=== PATIENT | male | born 1960 | race Caucasian/White ===

== ENCOUNTER 2020-10-02 07:33 | Inpatient (IN) | payer MEDICAID ==
[2020-10-02] MEDS ORDERED: Thiamine 100 MG in Sodium Chloride 0.9% 100 ML IV STA (08:22)
[2020-10-02] MEDS ORDERED: Multivitamin Tab PO STA (08:22)
[2020-10-02] MEDS ORDERED: Dextrose 5%-0.9% NaCl 1,000 ML IV SCH (08:30)
[2020-10-02] MEDS ORDERED: Diazepam 5 MG Tab PO ONE (09:15)
--- NOTE | 2020-10-02 10:57 | EDM.PDOC ---
ED HPI GENERAL MEDICAL PROBLEM - General Chief Complaint: General Stated Complaint: WEAKNESS Time Seen by Provider: 10/02/20 07:35 Source of Information: Reports: Patient History Limitations: Reports: No Limitations - History of Present Illness INITIAL COMMENTS - FREE TEXT/NARRATIVE: Patient presented to the ED because of weakness for months which got worse for the past week. He also c/o peripheral numbness especially on both legs. There is no associated abdominal pain/nausea or vomiting. There is no fever, chills, he c/o cough whic is mostly non-productive. He has a history of alcoholism and drinks half a gallon of vodka a day. - Related Data Allergies Allergy/AdvReac Type Severity Reaction Status Date / Time No Known Allergies Allergy Verified 10/02/20 08:14 Home Meds: Home Meds Metoprolol Tartrate 100 mg PO BID 03/02/16 [History] Sertraline HCl 150 mg PO DAILY 03/02/16 [History] amLODIPine Besylate [Amlodipine Besylate] 5 mg PO DAILY 03/02/16 [History] Levothyroxine [Synthroid] 75 mcg PO ACBREAKFAST 03/10/16 [History] Levothyroxine 200 mcg PO ACBREAKFAST 05/28/16 [History] Lisinopril/Hydrochlorothiazide [Lisinopril-Hctz 20-25 mg Tab] 20 - 25 tab DAILY 05/28/16 [History] Ferrous Sulfate [Iron] 324 mg PO BID 10/02/20 [History] atorvaSTATin [Lipitor] 20 mg PO DAILY 10/02/20 [History] Past Medical History Cardiovascular History: Reports: High Cholesterol, Hypertension Musculoskeletal History: Reports: Back Pain, Chronic Psychiatric History: Reports: Addiction, Anxiety, Depression, PTSD Other Psychiatric History: ETOH-Treatment 4x in 3 years. Endocrine/Metabolic History: Reports: Hypothyroidism Hematologic History: Reports: B12 Deficiency Other Dermatologic History: severe Flaky skin - Infectious Disease History Infectious Disease History: Reports: Chicken Pox - Past Surgical History Other GI Surgeries/Procedures: GASTRIC BYPASS Other Musculoskeletal Surgeries/Procedures:: SHOULDER SURGERY Social & Family History - Family History Family Medical History: No Pertinent Family History - Tobacco Use Packs/Tins Daily: 1 - Caffeine Use Caffeine Use: Reports: Soda - Alcohol Use Date of Last Drink: 10/01/20 - Recreational Drug Use Recreational Drug Use: No ED ROS GENERAL - Review of Systems Review Of Systems: See Below Constitutional: Reports: No Symptoms HEENT: Reports: No Symptoms Respiratory: Reports: Cough Cardiovascular: Reports: No Symptoms Endocrine: Reports: No Symptoms GI/Abdominal: Reports: No Symptoms : Reports: No Symptoms Musculoskeletal: Reports: No Symptoms Skin: Reports: No Symptoms Neurological: Reports: No Symptoms Psychiatric: Reports: No Symptoms Hematologic/Lymphatic: Reports: No Symptoms ED EXAM, GENERAL - Physical Exam Exam: See Below Exam Limited By: No Limitations General Appearance: Alert, No Apparent Distress Eye Exam: Bilateral Eye: PERRL Ears: Normal External Exam, Normal Canal, Hearing Grossly Normal Nose: Normal Inspection, Normal Mucosa, No Blood Throat/Mouth: Normal Inspection, Normal Lips Head: Atraumatic, Normocephalic Neck: Normal Inspection, Supple, Non-Tender, Full Range of Motion Respiratory/Chest: No Respiratory Distress, Lungs Clear, Normal Breath Sounds, No Accessory Muscle Use, Chest Non-Tender Cardiovascular: Normal Peripheral Pulses, Regular Rate, Rhythm, No Edema, No Gallop, No JVD, No Murmur GI/Abdominal: Normal Bowel Sounds, Soft, Non-Tender, No Organomegaly, No Distention, No Abnormal Bruit, No Mass Back Exam: Normal Inspection, Full Range of Motion Extremities: Normal Inspection, Normal Range of Motion, Non-Tender, No Pedal Edema, Normal Capillary Refill #1 Interpretation EKG Date: 10/02/20 Time: 10:20 Rhythm: NSR Rate (Beats/Min): 91 [place]: Normal P-Wave: Present QRS: Normal ST-T: Normal QT: Normal Comparison: NA - No Prior EKG (NSR RBB) Course - Vital Signs Text/Narrative:: Lab/EKG/CXR result was discussed with patient D5.9NS 1 L bolus Thiamine 100 mg IV x1 MVI 1 PO x1 Valium 10 mg PO x1 case discussed with Dr Dennison Last Recorded V/S: Last Vital Signs Temp 36.6 C 10/02/20 07:33 Pulse 98 10/02/20 07:33 Resp 18 10/02/20 07:33 BP 143/77 H 10/02/20 07:33 Pulse Ox 100 10/02/20 07:33 - Orders/Labs/Meds Orders: Active Orders 24 hr Category Date Time Status EKG Documentation Completion [RC] ASDIRECTED Care 10/02/20 08:21 Active Chest 1V Frontal [CR] Stat Exams 10/02/20 08:34 Taken Dextrose 5%-0.9% NaCl [Dextrose 5%-Normal Saline] 1,000 Med 10/02/20 08:30 Active ml IV ASDIRECTED Sodium Chloride 0.9% [Saline Flush] Med 10/02/20 08:20 Active 10 ml FLUSH ASDIRECTED PRN Saline Lock Insert [OM.PC] Routine Oth 10/02/20 08:20 Ordered EKG 12 Lead [EK] Routine Ther 10/02/20 08:20 Ordered Medication Orders Acetaminophen (Acetaminophen 325 Mg Tab) 650 mg PO Q4H PRN PRN Reason: Pain (Mild 1-3)/fever Dextrose/Sodium Chloride (Dextrose 5%-Normal Saline) 1,000 mls @ 999 mls/hr IV ASDIRECTED ROGER Last Admin: 10/02/20 08:38 Dose: 999 mls/hr Documented by: MARCELIMAViki Lorazepam (Lorazepam 1 Mg Tab) 0 mg PO ASDIRECTED ROGER; Protocol Lorazepam (Lorazepam 2 Mg/Ml Sdv) 0 mg IVPUSH ASDIRECTED PRN; Protocol PRN Reason: ALCOHOL WITHDRAWL Multivitamins/Minerals/Vitamin C (Multivitamin, Childrens Tab.Chew) 1 tab PO DAILY ROEGR Ondansetron HCl (Ondansetron 4 Mg/2 Ml Sdv) 4 mg IV Q4H PRN PRN Reason: Nausea/Vomiting Senna/Docusate Sodium (Docusate Sodium/Sennosides 50-8.6 Mg Tab) 1 tab PO BID PRN PRN Reason: Constipation Sodium Chloride (Sodium Chloride 0.9% 10 Ml Syringe) 10 ml FLUSH ASDIRECTED PRN PRN Reason: Keep Vein Open Labs: Laboratory Tests 10/02/20 10/02/20 10/02/20 Range/Units 08:44 08:44 08:44 WBC 4.5 (3.2-10.1) x10-3/uL RBC 4.23 (3.90-5.90) x10(6)uL Hgb 12.5 L (12.9-17.7) g/dL Hct 38.6 (38.3-50.1) % MCV 91.2 (80.8-98.7) fL MCH 29.6 (27.0-33.3) pg MCHC 32.4 (28.7-35.3) g/dL RDW 24.7 H (12.4-15.0) % Plt Count 66 L (117-477) x10(3)uL MPV 8.1 (6.7-11.0) fL Neut % (Auto) 78.5 H (40.3-71.8) % Lymph % (Auto) 15.1 L (15.8-45.3) % [place] % (Auto) 5.2 L (5.5-15.2) % Eos % (Auto) 0.7 (0.1-6.8) % Baso % (Auto) 0.5 (0.3-3.8) % Neut # (Auto) 3.6 (1.7-6.9) x10-3/uL Lymph # (Auto) 0.7 (0.5-4.5) x10-3/uL [place] # (Auto) 0.2 (0.0-1.2) x10-3/uL Eos # (Auto) 0.0 (0.0-0.6) x10-3/uL Baso # (Auto) 0.0 (0.0-0.3) x10-3/uL Sodium 137 (135-145) mmol/L Potassium 5.1 (3.5-5.3) mmol/L Chloride 94 L (100-110) mmol/L Carbon Dioxide 17 L (21-32) mmol/L BUN 39 H (7-18) mg/dL Creatinine 1.5 H (0.70-1.30) mg/dL Est Cr Clr Drug Dosing 57.48 mL/min Estimated GFR (MDRD) 48 L (>60) BUN/Creatinine Ratio 26.0 H (9-20) Glucose 80 (80-116) mg/dL Calcium 8.2 L (8.6-10.2) mg/dL Magnesium (1.8-2.5) mg/dL Total Bilirubin 1.3 (0.1-1.3) mg/dL AST 277 H* (5-25) IU/L ALT 98 H (12-36) U/L Alkaline Phosphatase 127 H (56-112) IU/L Troponin I 25.3 (4.0-60.3) pg/mL Total Protein 7.7 (6.0-8.0) g/dL Albumin 3.6 (3.2-4.6) g/dL Globulin 4.1 g/dL Albumin/Globulin Ratio 0.9 Amylase (25-115) U/L Lipase (73-393) U/L Ethyl Alcohol (<0.03) % 10/02/20 10/02/20 10/02/20 Range/Units 08:44 08:44 08:44 WBC (3.2-10.1) x10-3/uL RBC (3.90-5.90) x10(6)uL Hgb (12.9-17.7) g/dL Hct (38.3-50.1) % MCV (80.8-98.7) fL MCH (27.0-33.3) pg MCHC (28.7-35.3) g/dL RDW (12.4-15.0) % Plt Count (117-477) x10(3)uL MPV (6.7-11.0) fL Neut % (Auto) (40.3-71.8) % Lymph % (Auto) (15.8-45.3) % [place] % (Auto) (5.5-15.2) % Eos % (Auto) (0.1-6.8) % Baso % (Auto) (0.3-3.8) % Neut # (Auto) (1.7-6.9) x10-3/uL Lymph # (Auto) (0.5-4.5) x10-3/uL [place] # (Auto) (0.0-1.2) x10-3/uL Eos # (Auto) (0.0-0.6) x10-3/uL Baso # (Auto) (0.0-0.3) x10-3/uL Sodium (135-145) mmol/L Potassium (3.5-5.3) mmol/L Chloride (100-110) mmol/L Carbon Dioxide (21-32) mmol/L BUN (7-18) mg/dL Creatinine (0.70-1.30) mg/dL Est Cr Clr Drug Dosing mL/min Estimated GFR (MDRD) (>60) BUN/Creatinine Ratio (9-20) Glucose (80-116) mg/dL Calcium (8.6-10.2) mg/dL Magnesium 1.7 L (1.8-2.5) mg/dL Total Bilirubin (0.1-1.3) mg/dL AST (5-25) IU/L ALT (12-36) U/L Alkaline Phosphatase (56-112) IU/L Troponin I (4.0-60.3) pg/mL Total Protein (6.0-8.0) g/dL Albumin (3.2-4.6) g/dL Globulin g/dL Albumin/Globulin Ratio Amylase 177 H (25-115) U/L Lipase (73-393) U/L Ethyl Alcohol 0.27 H* (<0.03) % 10/02/20 Range/Units 08:44 WBC (3.2-10.1) x10-3/uL RBC (3.90-5.90) x10(6)uL Hgb (12.9-17.7) g/dL Hct (38.3-50.1) % MCV (80.8-98.7) fL MCH (27.0-33.3) pg MCHC (28.7-35.3) g/dL RDW (12.4-15.0) % Plt Count (117-477) x10(3)uL MPV (6.7-11.0) fL Neut % (Auto) (40.3-71.8) % Lymph % (Auto) (15.8-45.3) % [place] % (Auto) (5.5-15.2) % Eos % (Auto) (0.1-6.8) % Baso % (Auto) (0.3-3.8) % Neut # (Auto) (1.7-6.9) x10-3/uL Lymph # (Auto) (0.5-4.5) x10-3/uL [place] # (Auto) (0.0-1.2) x10-3/uL Eos # (Auto) (0.0-0.6) x10-3/uL Baso # (Auto) (0.0-0.3) x10-3/uL Sodium (135-145) mmol/L Potassium (3.5-5.3) mmol/L Chloride (100-110) mmol/L Carbon Dioxide (21-32) mmol/L BUN (7-18) mg/dL Creatinine (0.70-1.30) mg/dL Est Cr Clr Drug Dosing mL/min Estimated GFR (MDRD) (>60) BUN/Creatinine Ratio (9-20) Glucose (80-116) mg/dL Calcium (8.6-10.2) mg/dL Magnesium (1.8-2.5) mg/dL Total Bilirubin (0.1-1.3) mg/dL AST (5-25) IU/L ALT (12-36) U/L Alkaline Phosphatase (56-112) IU/L Troponin I (4.0-60.3) pg/mL Total Protein (6.0-8.0) g/dL Albumin (3.2-4.6) g/dL Globulin g/dL Albumin/Globulin Ratio Amylase (25-115) U/L Lipase 5339 H (73-393) U/L Ethyl Alcohol (<0.03) % Meds: Medications Generic Name Dose Route Start Last Admin Trade Name Freq PRN Reason Stop Dose Admin Acetaminophen 650 mg 10/02/20 11:42 Acetaminophen 325 Mg Tab PO Q4H PRN Pain (Mild 1-3)/fever Dextrose/Sodium Chloride 1,000 mls @ 999 mls/hr 10/02/20 08:30 10/02/20 08:38 Dextrose 5%-Normal Saline IV 999 mls/hr ASDIRECTED ROGER Administration Lorazepam 0 mg 10/02/20 12:15 Lorazepam 1 Mg Tab PO ASDIRECTED ROGER Protocol Lorazepam 0 mg 10/02/20 13:00 Lorazepam 2 Mg/Ml Sdv IVPUSH ASDIRECTED PRN ALCOHOL WITHDRAWL Protocol Multivitamins/Minerals/Vitamin C 1 tab 10/03/20 09:00 Multivitamin, Childrens Tab.Chew PO DAILY ROGER Ondansetron HCl 4 mg 10/02/20 11:42 Ondansetron 4 Mg/2 Ml Sdv IV Q4H PRN Nausea/Vomiting Senna/Docusate Sodium 1 tab 10/02/20 11:42 Docusate Sodium/Sennosides 50-8.6 Mg Tab PO BID PRN Constipation Sodium Chloride 10 ml 10/02/20 08:20 Sodium Chloride 0.9% 10 Ml Syringe FLUSH ASDIRECTED PRN Keep Vein Open Discontinued Medications Generic Name Dose Route Start Last Admin Trade Name Freq PRN Reason Stop Dose Admin Diazepam 10 mg 10/02/20 09:15 10/02/20 10:11 Diazepam 5 Mg Tab PO 10/02/20 09:16 10 mg ONETIME ONE Administration Enoxaparin Sodium 40 mg 10/02/20 11:45 Enoxaparin 40 Mg/0.4 Ml Syringe SUBCUT Q24H ROGER Thiamine HCl 100 mg/ Sodium 101 mls @ 202 mls/hr 10/02/20 08:22 10/02/20 08:44 Chloride IV 10/02/20 08:23 202 mls/hr NOW STA Administration Lorazepam 0 mg 10/02/20 11:47 Lorazepam 2 Mg/Ml Sdv IVPUSH Q4H PRN ALCOHOL WITHDRAWL Protocol Multivitamins/Minerals/Vitamin C 1 tab 10/02/20 08:22 10/02/20 08:46 Multivitamin Tab PO 10/02/20 08:23 1 tab NOW STA Administration Departure - Departure Time of Disposition: 12:45 Disposition: Refer to Observation Condition: Good Clinical Impression: Alcoholism, Alcohol intoxication, Weakness - Discharge Information Sepsis Event Note (ED) - Evaluation Sepsis Screening Result: No Definite Risk - Focused Exam Vital Signs: Vital Signs Temp Pulse Resp BP Pulse Ox 10/02/20 07:33 36.6 C 98 18 143/77 H 100 - My Orders Last 24 Hours: My Active Orders 10/02/20 08:20 Sodium Chloride 0.9% [Saline Flush] 10 ml FLUSH ASDIRECTED PRN Saline Lock Insert [OM.PC] Routine EKG 12 Lead [EK] Routine 10/02/20 08:21 EKG Documentation Completion [RC] ASDIRECTED 10/02/20 08:30 Dextrose 5%-0.9% NaCl [Dextrose 5%-Normal Saline] 1,000 ml IV ASDIRECTED 10/02/20 08:34 Chest 1V Frontal [CR] Stat - Assessment/Plan Last 24 Hours: My Active Orders 10/02/20 08:20 Sodium Chloride 0.9% [Saline Flush] 10 ml FLUSH ASDIRECTED PRN Saline Lock Insert [OM.PC] Routine EKG 12 Lead [EK] Routine 10/02/20 08:21 EKG Documentation Completion [RC] ASDIRECTED 10/02/20 08:30 Dextrose 5%-0.9% NaCl [Dextrose 5%-Normal Saline] 1,000 ml IV ASDIRECTED 10/02/20 08:34 Chest 1V Frontal [CR] Stat
[2020-10-02] MEDS ORDERED: Ondansetron 4 MG/2 ML SDV IV PRN (11:42)
[2020-10-02] MEDS ORDERED: Acetaminophen 325 MG Tab PO PRN (11:42)
[2020-10-02] MEDS ORDERED: Enoxaparin 40 MG/0.4 ML Syringe SUBCUT SCH (11:45)
[2020-10-02] MEDS ORDERED: LORazepam 2 MG/ML SDV IVPUSH PRN ×2 (11:47→13:00)
--- NOTE | 2020-10-02 16:36 | CR ---
INDICATION: Cough, alcoholism. CHEST ONE VIEW: AP portable upright view of the chest was obtained 10/02/20 - no comparisons. The heart did not appear enlarged. Calcification is noted in the arch of the aorta Overlying snaps are noted. An active infiltrate or effusion was not identified. IMPRESSION: No acute process. MTDD
[2020-10-02] MEDS: Multivitamin, Childrens Tab.Chew PO SCH (16:41)
--- NOTE | 2020-10-02 17:03 | PCM.HP.2 ---
H&P History of Present Illness - General Date of Service: 10/02/20 Admit Problem/Dx: Admission Diagnosis/Problem Admission Diagnosis/Problem Weakness Source of Information: Patient, Old Records History Limitations: Reports: No Limitations - History of Present Illness Initial Comments - Free Text/Narative: Anaya is a 60 yo male who presented to the ED because of weakness for months which got worse for the past week. He also c/o peripheral numbness especially on both legs. There is no associated abdominal pain/nausea or vomiting. There is no fever, chills, he c/o cough which is mostly non-productive. He has a history of alcoholism and drinks half a gallon of vodka a day.Other past problems include hypothyroidism,tobacco abuse,hypokalemia,MDD and type 2 DM - Related Data Allergies/Adverse Reactions: Allergies Allergy/AdvReac Type Severity Reaction Status Date / Time No Known Allergies Allergy Verified 10/02/20 08:14 Home Medications: Home Meds Metoprolol Tartrate 100 mg PO BID 03/02/16 [History] Sertraline HCl 150 mg PO DAILY 03/02/16 [History] amLODIPine Besylate [Amlodipine Besylate] 5 mg PO DAILY 03/02/16 [History] Levothyroxine [Synthroid] 75 mcg PO ACBREAKFAST 03/10/16 [History] Levothyroxine 200 mcg PO ACBREAKFAST 05/28/16 [History] Lisinopril/Hydrochlorothiazide [Lisinopril-Hctz 20-25 mg Tab] 20 - 25 tab DAILY 05/28/16 [History] Ferrous Sulfate [Iron] 324 mg PO BID 10/02/20 [History] atorvaSTATin [Lipitor] 20 mg PO DAILY 10/02/20 [History] Past Medical History HEENT History: Reports: None Cardiovascular History: Reports: High Cholesterol, Hypertension Genitourinary History: Reports: Urinary Incontinence Musculoskeletal History: Reports: Back Pain, Chronic Psychiatric History: Reports: Addiction, Anxiety, Depression, PTSD Other Psychiatric History: ETOH-Treatment 4x in 3 years. Endocrine/Metabolic History: Reports: Hypothyroidism Hematologic History: Reports: B12 Deficiency Other Dermatologic History: severe Flaky skin - Infectious Disease History Infectious Disease History: Reports: Chicken Pox - Past Surgical History Head Surgeries/Procedures: Reports: None HEENT Surgical History: Reports: None Other GI Surgeries/Procedures: GASTRIC BYPASS Male Surgical History: Reports: None Other Musculoskeletal Surgeries/Procedures:: SHOULDER SURGERY Social & Family History - Family History Family Medical History: No Pertinent Family History - Tobacco Use Tobacco Use Status *Q: Heavy Tobacco User Years of Tobacco use: 8 Packs/Tins Daily: 1 Second Hand Smoke Exposure: No - Caffeine Use Caffeine Use: Reports: Coffee Caffeine Use Comment: 1 cup/day - Alcohol Use Days Per Week of Alcohol Use: 7 Number of Drinks Per Day: 8 Total Drinks Per Week: 56 Date of Last Drink: 10/01/20 - Recreational Drug Use Recreational Drug Use: No H&P Review of Systems - Review of Systems: Review Of Systems: Comprehensive ROS is negative, except as noted in HPI. Exam - Exam Exam: See Below - Vital Signs Vital Signs: Last Vital Signs Temp 98 F 10/02/20 13:30 Pulse 100 10/02/20 13:30 Resp 18 10/02/20 13:30 BP 180/72 H 10/02/20 13:30 Pulse Ox 99 10/02/20 13:30 Weight: 130 kg - Exam General: Alert, Oriented HEENT: PERRLA Neck: Supple Lungs: Clear to Auscultation, Crackles Cardiovascular: Regular Rate GI/Abdominal Exam: Soft (Male) Exam: No Hernia Rectal (Males) Exam: Deferred Back Exam: Normal Inspection Extremities: Normal Inspection Skin: Warm - Patient Data Lab Results Last 24 hrs: Laboratory Results - last 24 hr 10/02/20 10/02/20 10/02/20 Range/Units 08:44 08:44 08:44 WBC 4.5 (3.2-10.1) x10-3/uL RBC 4.23 (3.90-5.90) x10(6)uL Hgb 12.5 L (12.9-17.7) g/dL Hct 38.6 (38.3-50.1) % MCV 91.2 (80.8-98.7) fL MCH 29.6 (27.0-33.3) pg MCHC 32.4 (28.7-35.3) g/dL RDW 24.7 H (12.4-15.0) % Plt Count 66 L (117-477) x10(3)uL MPV 8.1 (6.7-11.0) fL Neut % (Auto) 78.5 H (40.3-71.8) % Lymph % (Auto) 15.1 L (15.8-45.3) % [place] % (Auto) 5.2 L (5.5-15.2) % Eos % (Auto) 0.7 (0.1-6.8) % Baso % (Auto) 0.5 (0.3-3.8) % Neut # (Auto) 3.6 (1.7-6.9) x10-3/uL Lymph # (Auto) 0.7 (0.5-4.5) x10-3/uL [place] # (Auto) 0.2 (0.0-1.2) x10-3/uL Eos # (Auto) 0.0 (0.0-0.6) x10-3/uL Baso # (Auto) 0.0 (0.0-0.3) x10-3/uL Sodium 137 (135-145) mmol/L Potassium 5.1 (3.5-5.3) mmol/L Chloride 94 L (100-110) mmol/L Carbon Dioxide 17 L (21-32) mmol/L BUN 39 H (7-18) mg/dL Creatinine 1.5 H (0.70-1.30) mg/dL Est Cr Clr Drug Dosing 57.48 mL/min Estimated GFR (MDRD) 48 L (>60) BUN/Creatinine Ratio 26.0 H (9-20) Glucose 80 (80-116) mg/dL Calcium 8.2 L (8.6-10.2) mg/dL Phosphorus (2.6-4.6) mg/dL Magnesium (1.8-2.5) mg/dL Total Bilirubin 1.3 (0.1-1.3) mg/dL AST 277 H* (5-25) IU/L ALT 98 H (12-36) U/L Alkaline Phosphatase 127 H (56-112) IU/L Troponin I 25.3 (4.0-60.3) pg/mL Total Protein 7.7 (6.0-8.0) g/dL Albumin 3.6 (3.2-4.6) g/dL Globulin 4.1 g/dL Albumin/Globulin Ratio 0.9 Amylase (25-115) U/L Lipase (73-393) U/L Ethyl Alcohol (<0.03) % SARS-CoV-2 RNA (SHARIF) (NEGATIVE) 10/02/20 10/02/20 10/02/20 Range/Units 08:44 08:44 08:44 WBC (3.2-10.1) x10-3/uL RBC (3.90-5.90) x10(6)uL Hgb (12.9-17.7) g/dL Hct (38.3-50.1) % MCV (80.8-98.7) fL MCH (27.0-33.3) pg MCHC (28.7-35.3) g/dL RDW (12.4-15.0) % Plt Count (117-477) x10(3)uL MPV (6.7-11.0) fL Neut % (Auto) (40.3-71.8) % Lymph % (Auto) (15.8-45.3) % [place] % (Auto) (5.5-15.2) % Eos % (Auto) (0.1-6.8) % Baso % (Auto) (0.3-3.8) % Neut # (Auto) (1.7-6.9) x10-3/uL Lymph # (Auto) (0.5-4.5) x10-3/uL [place] # (Auto) (0.0-1.2) x10-3/uL Eos # (Auto) (0.0-0.6) x10-3/uL Baso # (Auto) (0.0-0.3) x10-3/uL Sodium (135-145) mmol/L Potassium (3.5-5.3) mmol/L Chloride (100-110) mmol/L Carbon Dioxide (21-32) mmol/L BUN (7-18) mg/dL Creatinine (0.70-1.30) mg/dL Est Cr Clr Drug Dosing mL/min Estimated GFR (MDRD) (>60) BUN/Creatinine Ratio (9-20) Glucose (80-116) mg/dL Calcium (8.6-10.2) mg/dL Phosphorus (2.6-4.6) mg/dL Magnesium 1.7 L (1.8-2.5) mg/dL Total Bilirubin (0.1-1.3) mg/dL AST (5-25) IU/L ALT (12-36) U/L Alkaline Phosphatase (56-112) IU/L Troponin I (4.0-60.3) pg/mL Total Protein (6.0-8.0) g/dL Albumin (3.2-4.6) g/dL Globulin g/dL Albumin/Globulin Ratio Amylase 177 H (25-115) U/L Lipase (73-393) U/L Ethyl Alcohol 0.27 H* (<0.03) % SARS-CoV-2 RNA (SHARIF) (NEGATIVE) 10/02/20 10/02/20 10/02/20 Range/Units 08:44 11:48 11:50 WBC (3.2-10.1) x10-3/uL RBC (3.90-5.90) x10(6)uL Hgb (12.9-17.7) g/dL Hct (38.3-50.1) % MCV (80.8-98.7) fL MCH (27.0-33.3) pg MCHC (28.7-35.3) g/dL RDW (12.4-15.0) % Plt Count (117-477) x10(3)uL MPV (6.7-11.0) fL Neut % (Auto) (40.3-71.8) % Lymph % (Auto) (15.8-45.3) % [place] % (Auto) (5.5-15.2) % Eos % (Auto) (0.1-6.8) % Baso % (Auto) (0.3-3.8) % Neut # (Auto) (1.7-6.9) x10-3/uL Lymph # (Auto) (0.5-4.5) x10-3/uL [place] # (Auto) (0.0-1.2) x10-3/uL Eos # (Auto) (0.0-0.6) x10-3/uL Baso # (Auto) (0.0-0.3) x10-3/uL Sodium (135-145) mmol/L Potassium (3.5-5.3) mmol/L Chloride (100-110) mmol/L Carbon Dioxide (21-32) mmol/L BUN (7-18) mg/dL Creatinine (0.70-1.30) mg/dL Est Cr Clr Drug Dosing mL/min Estimated GFR (MDRD) (>60) BUN/Creatinine Ratio (9-20) Glucose (80-116) mg/dL Calcium (8.6-10.2) mg/dL Phosphorus 0.7 L* (2.6-4.6) mg/dL Magnesium (1.8-2.5) mg/dL Total Bilirubin (0.1-1.3) mg/dL AST (5-25) IU/L ALT (12-36) U/L Alkaline Phosphatase (56-112) IU/L Troponin I (4.0-60.3) pg/mL Total Protein (6.0-8.0) g/dL Albumin (3.2-4.6) g/dL Globulin g/dL Albumin/Globulin Ratio Amylase (25-115) U/L Lipase 5339 H (73-393) U/L Ethyl Alcohol (<0.03) % SARS-CoV-2 RNA (SHARIF) Negative (NEGATIVE) Result Diagrams: 10/02/20 08:44 10/02/20 08:44 Sepsis Event Note - Evaluation Sepsis Screening Result: No Definite Risk - Focused Exam Vital Signs: Vital Signs Temp Pulse Resp BP Pulse Ox 10/02/20 13:30 98 F 100 18 180/72 H 99 10/02/20 11:15 98.2 F 105 H 18 166/75 H 99 10/02/20 07:33 97.9 F 98 18 143/77 H 100 - Problem List (1) OSCAR (acute kidney injury) SNOMED Code(s): 37512106, 98938320 ICD Code: N17.9 - ACUTE KIDNEY FAILURE, UNSPECIFIED Status: Acute Current Visit: Yes (2) Obesity SNOMED Code(s): 449421826, 856747588 ICD Code: E66.9 - OBESITY, UNSPECIFIED Status: Acute Current Visit: Yes Qualifiers: Obesity type: due to excess calories (3) Hypothyroidism SNOMED Code(s): 34384703 ICD Code: E03.9 - HYPOTHYROIDISM, UNSPECIFIED Status: Chronic Current Visit: Yes (4) Hypomagnesemia SNOMED Code(s): 621038751 ICD Code: E83.42 - HYPOMAGNESEMIA Status: Chronic Current Visit: Yes (5) Hypophosphatemia SNOMED Code(s): 0803043 ICD Code: E83.39 - OTHER DISORDERS OF PHOSPHORUS METABOLISM Status: Chronic Current Visit: Yes (6) MDD (major depressive disorder) SNOMED Code(s): 114662251 ICD Code: F32.9 - MAJOR DEPRESSIVE DISORDER, SINGLE EPISODE, UNSPECIFIED Status: Chronic Current Visit: Yes Qualifiers: Major depression recurrence: recurrent Active/Remission status: currently active Psychotic features: without psychotic features (7) Tobacco abuse SNOMED Code(s): 341299071 ICD Code: Z72.0 - TOBACCO USE Status: Chronic Current Visit: Yes (8) Chronic cough SNOMED Code(s): 23635827 ICD Code: R05 - COUGH Status: Acute Current Visit: Yes (9) Alcoholism SNOMED Code(s): 9749804 ICD Code: F10.20 - ALCOHOL DEPENDENCE, UNCOMPLICATED Status: Acute Current Visit: Yes (10) Weakness SNOMED Code(s): 81041817 ICD Code: R53.1 - WEAKNESS Status: Acute Current Visit: Yes (11) Alcohol withdrawal syndrome SNOMED Code(s): 452600854 ICD Code: F10.239 - ALCOHOL DEPENDENCE WITH WITHDRAWAL, UNSPECIFIED Status: Acute Current Visit: No Qualifiers: Complication of substance-induced condition: with unspecified complication Qualified Code(s): F10.239 - Alcohol dependence with withdrawal, unspecified Problem List Initiated/Reviewed/Updated: Yes Orders Last 24hrs: Active Orders 24 hr Category Date Time Status Patient Status [ADT] Routine ADT 10/02/20 11:42 Active EKG Documentation Completion [RC] ASDIRECTED Care 10/02/20 08:21 Active Intake and Output [RC] QSHIFT Care 10/02/20 11:44 Active Oxygen Therapy [RC] PRN Care 10/02/20 11:42 Active RT Aerosol Therapy [RC] ASDIRECTED Care 10/02/20 16:55 Ordered Up With Assistance [RC] ASDIRECTED Care 10/02/20 11:42 Active VTE/DVT Education [RC] Per Unit Routine Care 10/02/20 11:42 Active Vital Signs [RC] Q4H Care 10/02/20 11:42 Active OT Evaluation and Treatment [CONS] Routine Cons 10/02/20 16:56 Ordered PT Evaluation and Treatment [CONS] Routine Cons 10/02/20 11:42 Active Heart Healthy Diet [DIET] Diet 10/02/20 Lunch Ordered AMMONIA, PLASMA Stat Lab 10/02/20 16:55 Ordered CBC WITH AUTO DIFF [HEME] AM Lab 10/03/20 05:11 Ordered COMPREHENSIVE METABOLIC PN,CMP [CHEM] AM Lab 10/03/20 05:11 Ordered Acetaminophen [TylenoL] Med 10/02/20 11:42 Active 650 mg PO Q4H PRN Albuterol/Ipratropium [DuoNeb 3.0-0.5 MG/3 ML] Med 10/02/20 17:00 Ordered 3 ml NEB Q6H Codeine/guaiFENesin [Robitussin AC] Med 10/02/20 17:00 Ordered 10 ml PO Q6H Dextrose 5%-0.9% NaCl [Dextrose 5%-Normal Saline] 1,000 Med 10/02/20 08:30 Active ml IV ASDIRECTED Docusate Sodium/Sennosides [Senna Plus] Med 10/02/20 11:42 Active 1 tab PO BID PRN LORazepam [Ativan] Med 10/02/20 13:00 Active 0 mg IVPUSH ASDIRECTED PRN LORazepam [Ativan] Med 10/02/20 12:15 Active See Protocol PO ASDIRECTED Levothyroxine Med 10/03/20 07:30 Ordered 200 mcg PO ACBREAKFAST Levothyroxine [Synthroid] Med 10/03/20 07:30 Ordered 75 mcg PO ACBREAKFAST Metoprolol Tartrate [Lopressor] Med 10/02/20 21:00 Ordered 100 mg PO BID Multivitamins [Childrens Chewable Vitamin] Med 10/03/20 09:00 Active 1 tab PO DAILY Ondansetron [Zofran] Med 10/02/20 11:42 Active 4 mg IV Q4H PRN Sertraline [Zoloft] Med 10/03/20 09:00 Ordered 150 mg PO DAILY Sodium Chloride 0.9% @ 125 MLS/HR (1000ml) Med 10/02/20 17:00 Ordered Sodium Chloride 0.9% [Normal Saline] 1,000 ml IV ASDIRECTED Sodium Chloride 0.9% [Saline Flush] Med 10/02/20 08:20 Active 10 ml FLUSH ASDIRECTED PRN amLODIPine [Norvasc] Med 10/03/20 09:00 Ordered 5 mg PO DAILY Saline Lock Insert [OM.PC] Routine Oth 10/02/20 08:20 Ordered Sequential Compression Device [OM.PC] Per Unit Routine Oth 10/02/20 11:44 Ordered Resuscitation Status Routine Resus Stat 10/02/20 11:42 Ordered EKG 12 Lead [EK] Routine Ther 10/02/20 08:20 Ordered Medication Orders Acetaminophen (Acetaminophen 325 Mg Tab) 650 mg PO Q4H PRN PRN Reason: Pain (Mild 1-3)/fever Albuterol/Ipratropium (Albuterol/Ipratropium 3.0-0.5 Mg/3 Ml Neb Soln) 3 ml NEB Q6H ROGER Amlodipine Besylate (Amlodipine 5 Mg Tab) 5 mg PO DAILY ROGER Guaifenesin/Codeine Phosphate (Codeine/Guaifenesin 10-100 Mg/5 Ml Syrup 5 Ml Cup) 10 ml PO Q6H ROGER Dextrose/Sodium Chloride (Dextrose 5%-Normal Saline) 1,000 mls @ 999 mls/hr IV ASDIRECTED ROGER Last Admin: 10/02/20 08:38 Dose: 999 mls/hr Documented by: MATIMAR Sodium Chloride (Normal Saline) 1,000 mls @ 125 mls/hr IV ASDIRECTED ROGER Levothyroxine Sodium (Levothyroxine 200 Mcg Tab) 200 mcg PO ACBREAKFAST ROGER Levothyroxine Sodium (Levothyroxine 50 Mcg Tab) 75 mcg PO ACBREAKFAST ROGER Lorazepam (Lorazepam 1 Mg Tab) 0 mg PO ASDIRECTED ROGER; Protocol Lorazepam (Lorazepam 2 Mg/Ml Sdv) 0 mg IVPUSH ASDIRECTED PRN; Protocol PRN Reason: ALCOHOL WITHDRAWL Metoprolol Tartrate (Metoprolol Tartrate 100 Mg Tab) 100 mg PO BID ROGER Multivitamins/Minerals/Vitamin C (Multivitamin, Childrens Tab.Chew) 1 tab PO DAILY [facility] Last Admin: 10/02/20 16:41 Dose: 1 tab Documented by: PORTER Ondansetron HCl (Ondansetron 4 Mg/2 Ml Sdv) 4 mg IV Q4H PRN PRN Reason: Nausea/Vomiting Senna/Docusate Sodium (Docusate Sodium/Sennosides 50-8.6 Mg Tab) 1 tab PO BID PRN PRN Reason: Constipation Sertraline HCl (Sertraline 100 Mg Tab) 150 mg PO DAILY ROGER Sodium Chloride (Sodium Chloride 0.9% 10 Ml Syringe) 10 ml FLUSH ASDIRECTED PRN PRN Reason: Keep Vein Open Assessment/Plan Comment:: Admit for IVF supplementation,observation. CIWA protocol. Karina Stapleton. Tobacco cessation.
[2020-10-02] MEDS: Sodium Chloride 0.9% 1,000 ML IV SCH (17:22)
[2020-10-02] MEDS: Albuterol/Ipratropium 3.0-0.5 MG/3 ML Neb Soln NEB SCH ×2 (17:23→22:46)
[2020-10-02] MEDS: Codeine/guaiFENesin 10-100 MG/5 ML Syrup 5 ML Cup PO SCH ×2 (17:23→22:46)
[2020-10-02 17:32] LABS: HEMOGLOBIN A1C 5.6 % (<5.7)
[2020-10-02] MEDS ORDERED: Levothyroxine 75 MCG Tab PO ONE (18:18)
[2020-10-02] MEDS: Metoprolol Tartrate 100 MG Tab PO SCH (20:08)
[2020-10-02] MEDS: LORazepam 1 MG Tab PO SCH (22:46)
[2020-10-03] MEDS: Sodium Chloride 0.9% 1,000 ML IV SCH ×3 (01:17→17:53)
[2020-10-03] MEDS: Albuterol/Ipratropium 3.0-0.5 MG/3 ML Neb Soln NEB SCH ×4 (05:57→22:57)
[2020-10-03] MEDS: Codeine/guaiFENesin 10-100 MG/5 ML Syrup 5 ML Cup PO SCH ×4 (05:57→22:57)
[2020-10-03] MEDS: Levothyroxine 75 MCG Tab PO SCH (06:47)
--- NOTE | 2020-10-03 08:57 | PCM.PN ---
- General Info Date of Service: 10/03/20 Subjective Update: Anaya has problems with ambulating. His legs feel unsteady,heavy and numb. His cough has improved this morning Functional Status: Reports: Pain Controlled, Tolerating Diet. Denies: Ambulating - Review of Systems HEENT: Reports: No Symptoms Cardiovascular: Reports: No Symptoms Gastrointestinal: Reports: No Symptoms Genitourinary: Reports: No Symptoms - Patient Data Vitals - Most Recent: Last Vital Signs Temp 98.8 F 10/03/20 03:00 Pulse 72 10/03/20 05:57 Resp 16 10/03/20 03:00 BP 144/82 H 10/03/20 03:00 Pulse Ox 95 10/03/20 03:00 Weight - Most Recent: 130 kg I&O - Last 24 Hours: Intake & Output 10/02/20 10/03/20 10/03/20 22:59 06:59 14:59 Intake Total 240 2162 207 Output Total 0 Balance 240 2162 207 Lab Results Last 24 Hours: Laboratory Results - last 24 hr 10/02/20 10/02/20 10/02/20 Range/Units 07:54 08:44 08:44 WBC 4.5 (3.2-10.1) x10-3/uL RBC 4.23 (3.90-5.90) x10(6)uL Hgb 12.5 L (12.9-17.7) g/dL Hct 38.6 (38.3-50.1) % MCV 91.2 (80.8-98.7) fL MCH 29.6 (27.0-33.3) pg MCHC 32.4 (28.7-35.3) g/dL RDW 24.7 H (12.4-15.0) % Plt Count 66 L (117-477) x10(3)uL MPV 8.1 (6.7-11.0) fL Neut % (Auto) 78.5 H (40.3-71.8) % Lymph % (Auto) 15.1 L (15.8-45.3) % [place] % (Auto) 5.2 L (5.5-15.2) % Eos % (Auto) 0.7 (0.1-6.8) % Baso % (Auto) 0.5 (0.3-3.8) % Neut # (Auto) 3.6 (1.7-6.9) x10-3/uL Lymph # (Auto) 0.7 (0.5-4.5) x10-3/uL [place] # (Auto) 0.2 (0.0-1.2) x10-3/uL Eos # (Auto) 0.0 (0.0-0.6) x10-3/uL Baso # (Auto) 0.0 (0.0-0.3) x10-3/uL Sodium 137 (135-145) mmol/L Potassium 5.1 (3.5-5.3) mmol/L Chloride 94 L (100-110) mmol/L Carbon Dioxide 17 L (21-32) mmol/L BUN 39 H (7-18) mg/dL Creatinine 1.5 H (0.70-1.30) mg/dL Est Cr Clr Drug Dosing 57.48 mL/min Estimated GFR (MDRD) 48 L (>60) BUN/Creatinine Ratio 26.0 H (9-20) Glucose 80 (80-116) mg/dL POC Glucose 61 L (74-100) mg/dL Hemoglobin A1c (<5.7) % Calcium 8.2 L (8.6-10.2) mg/dL Phosphorus (2.6-4.6) mg/dL Magnesium (1.8-2.5) mg/dL Total Bilirubin 1.3 (0.1-1.3) mg/dL AST 277 H* (5-25) IU/L ALT 98 H (12-36) U/L Alkaline Phosphatase 127 H (56-112) IU/L Troponin I (4.0-60.3) pg/mL Total Protein 7.7 (6.0-8.0) g/dL Albumin 3.6 (3.2-4.6) g/dL Globulin 4.1 g/dL Albumin/Globulin Ratio 0.9 Amylase (25-115) U/L Lipase (73-393) U/L TSH, Ultra Sensitive (0.36-3.74) IU/mL Ethyl Alcohol (<0.03) % SARS-CoV-2 RNA (SHARIF) (NEGATIVE) 10/02/20 10/02/20 10/02/20 Range/Units 08:44 08:44 08:44 WBC (3.2-10.1) x10-3/uL RBC (3.90-5.90) x10(6)uL Hgb (12.9-17.7) g/dL Hct (38.3-50.1) % MCV (80.8-98.7) fL MCH (27.0-33.3) pg MCHC (28.7-35.3) g/dL RDW (12.4-15.0) % Plt Count (117-477) x10(3)uL MPV (6.7-11.0) fL Neut % (Auto) (40.3-71.8) % Lymph % (Auto) (15.8-45.3) % [place] % (Auto) (5.5-15.2) % Eos % (Auto) (0.1-6.8) % Baso % (Auto) (0.3-3.8) % Neut # (Auto) (1.7-6.9) x10-3/uL Lymph # (Auto) (0.5-4.5) x10-3/uL [place] # (Auto) (0.0-1.2) x10-3/uL Eos # (Auto) (0.0-0.6) x10-3/uL Baso # (Auto) (0.0-0.3) x10-3/uL Sodium (135-145) mmol/L Potassium (3.5-5.3) mmol/L Chloride (100-110) mmol/L Carbon Dioxide (21-32) mmol/L BUN (7-18) mg/dL Creatinine (0.70-1.30) mg/dL Est Cr Clr Drug Dosing mL/min Estimated GFR (MDRD) (>60) BUN/Creatinine Ratio (9-20) Glucose (80-116) mg/dL POC Glucose (74-100) mg/dL Hemoglobin A1c (<5.7) % Calcium (8.6-10.2) mg/dL Phosphorus (2.6-4.6) mg/dL Magnesium 1.7 L (1.8-2.5) mg/dL Total Bilirubin (0.1-1.3) mg/dL AST (5-25) IU/L ALT (12-36) U/L Alkaline Phosphatase (56-112) IU/L Troponin I 25.3 (4.0-60.3) pg/mL Total Protein (6.0-8.0) g/dL Albumin (3.2-4.6) g/dL Globulin g/dL Albumin/Globulin Ratio Amylase (25-115) U/L Lipase (73-393) U/L TSH, Ultra Sensitive (0.36-3.74) IU/mL Ethyl Alcohol 0.27 H* (<0.03) % SARS-CoV-2 RNA (SHARIF) (NEGATIVE) 10/02/20 10/02/20 10/02/20 Range/Units 08:44 08:44 11:48 WBC (3.2-10.1) x10-3/uL RBC (3.90-5.90) x10(6)uL Hgb (12.9-17.7) g/dL Hct (38.3-50.1) % MCV (80.8-98.7) fL MCH (27.0-33.3) pg MCHC (28.7-35.3) g/dL RDW (12.4-15.0) % Plt Count (117-477) x10(3)uL MPV (6.7-11.0) fL Neut % (Auto) (40.3-71.8) % Lymph % (Auto) (15.8-45.3) % [place] % (Auto) (5.5-15.2) % Eos % (Auto) (0.1-6.8) % Baso % (Auto) (0.3-3.8) % Neut # (Auto) (1.7-6.9) x10-3/uL Lymph # (Auto) (0.5-4.5) x10-3/uL [place] # (Auto) (0.0-1.2) x10-3/uL Eos # (Auto) (0.0-0.6) x10-3/uL Baso # (Auto) (0.0-0.3) x10-3/uL Sodium (135-145) mmol/L Potassium (3.5-5.3) mmol/L Chloride (100-110) mmol/L Carbon Dioxide (21-32) mmol/L BUN (7-18) mg/dL Creatinine (0.70-1.30) mg/dL Est Cr Clr Drug Dosing mL/min Estimated GFR (MDRD) (>60) BUN/Creatinine Ratio (9-20) Glucose (80-116) mg/dL POC Glucose (74-100) mg/dL Hemoglobin A1c (<5.7) % Calcium (8.6-10.2) mg/dL Phosphorus (2.6-4.6) mg/dL Magnesium (1.8-2.5) mg/dL Total Bilirubin (0.1-1.3) mg/dL AST (5-25) IU/L ALT (12-36) U/L Alkaline Phosphatase (56-112) IU/L Troponin I (4.0-60.3) pg/mL Total Protein (6.0-8.0) g/dL Albumin (3.2-4.6) g/dL Globulin g/dL Albumin/Globulin Ratio Amylase 177 H (25-115) U/L Lipase 5339 H (73-393) U/L TSH, Ultra Sensitive (0.36-3.74) IU/mL Ethyl Alcohol (<0.03) % SARS-CoV-2 RNA (SHARIF) Negative (NEGATIVE) 10/02/20 10/02/20 10/02/20 Range/Units 11:50 17:15 17:15 WBC (3.2-10.1) x10-3/uL RBC (3.90-5.90) x10(6)uL Hgb (12.9-17.7) g/dL Hct (38.3-50.1) % MCV (80.8-98.7) fL MCH (27.0-33.3) pg MCHC (28.7-35.3) g/dL RDW (12.4-15.0) % Plt Count (117-477) x10(3)uL MPV (6.7-11.0) fL Neut % (Auto) (40.3-71.8) % Lymph % (Auto) (15.8-45.3) % [place] % (Auto) (5.5-15.2) % Eos % (Auto) (0.1-6.8) % Baso % (Auto) (0.3-3.8) % Neut # (Auto) (1.7-6.9) x10-3/uL Lymph # (Auto) (0.5-4.5) x10-3/uL [place] # (Auto) (0.0-1.2) x10-3/uL Eos # (Auto) (0.0-0.6) x10-3/uL Baso # (Auto) (0.0-0.3) x10-3/uL Sodium (135-145) mmol/L Potassium (3.5-5.3) mmol/L Chloride (100-110) mmol/L Carbon Dioxide (21-32) mmol/L BUN (7-18) mg/dL Creatinine (0.70-1.30) mg/dL Est Cr Clr Drug Dosing mL/min Estimated GFR (MDRD) (>60) BUN/Creatinine Ratio (9-20) Glucose (80-116) mg/dL POC Glucose (74-100) mg/dL Hemoglobin A1c 5.6 (<5.7) % Calcium (8.6-10.2) mg/dL Phosphorus 0.7 L* (2.6-4.6) mg/dL Magnesium (1.8-2.5) mg/dL Total Bilirubin (0.1-1.3) mg/dL AST (5-25) IU/L ALT (12-36) U/L Alkaline Phosphatase (56-112) IU/L Troponin I (4.0-60.3) pg/mL Total Protein (6.0-8.0) g/dL Albumin (3.2-4.6) g/dL Globulin g/dL Albumin/Globulin Ratio Amylase (25-115) U/L Lipase (73-393) U/L TSH, Ultra Sensitive 43.87 H* (0.36-3.74) IU/mL Ethyl Alcohol (<0.03) % SARS-CoV-2 RNA (SHARIF) (NEGATIVE) 10/03/20 10/03/20 Range/Units 06:55 06:55 WBC 3.8 (3.2-10.1) x10-3/uL RBC 3.48 L (3.90-5.90) x10(6)uL Hgb 10.2 L (12.9-17.7) g/dL Hct 31.5 L (38.3-50.1) % MCV 90.3 (80.8-98.7) fL MCH 29.3 (27.0-33.3) pg MCHC 32.5 (28.7-35.3) g/dL RDW 23.9 H (12.4-15.0) % Plt Count 35 L* (117-477) x10(3)uL MPV 9.2 (6.7-11.0) fL Neut % (Auto) 68.5 (40.3-71.8) % Lymph % (Auto) 20.7 (15.8-45.3) % [place] % (Auto) 8.4 (5.5-15.2) % Eos % (Auto) 1.8 (0.1-6.8) % Baso % (Auto) 0.6 (0.3-3.8) % Neut # (Auto) 2.6 (1.7-6.9) x10-3/uL Lymph # (Auto) 0.8 (0.5-4.5) x10-3/uL [place] # (Auto) 0.3 (0.0-1.2) x10-3/uL Eos # (Auto) 0.1 (0.0-0.6) x10-3/uL Baso # (Auto) 0.0 (0.0-0.3) x10-3/uL Sodium 137 (135-145) mmol/L Potassium 4.5 (3.5-5.3) mmol/L Chloride 99 L D (100-110) mmol/L Carbon Dioxide 26 (21-32) mmol/L BUN 39 H (7-18) mg/dL Creatinine 1.5 H (0.70-1.30) mg/dL Est Cr Clr Drug Dosing 66.00 mL/min Estimated GFR (MDRD) 48 L (>60) BUN/Creatinine Ratio 26.0 H (9-20) Glucose 91 (80-116) mg/dL POC Glucose (74-100) mg/dL Hemoglobin A1c (<5.7) % Calcium 8.4 L (8.6-10.2) mg/dL Phosphorus (2.6-4.6) mg/dL Magnesium (1.8-2.5) mg/dL Total Bilirubin 1.0 (0.1-1.3) mg/dL AST 165 H* D (5-25) IU/L ALT 67 H D (12-36) U/L Alkaline Phosphatase 102 (56-112) IU/L Troponin I (4.0-60.3) pg/mL Total Protein 6.6 (6.0-8.0) g/dL Albumin 3.0 L (3.2-4.6) g/dL Globulin 3.6 g/dL Albumin/Globulin Ratio 0.8 Amylase (25-115) U/L Lipase (73-393) U/L TSH, Ultra Sensitive (0.36-3.74) IU/mL Ethyl Alcohol (<0.03) % SARS-CoV-2 RNA (SHARIF) (NEGATIVE) Med Orders - Current: Current Medications Acetaminophen (Acetaminophen 325 Mg Tab) 650 mg PO Q4H PRN PRN Reason: Pain (Mild 1-3)/fever Last Admin: 10/02/20 20:08 Dose: 650 mg Documented by: Albuterol/Ipratropium (Albuterol/Ipratropium 3.0-0.5 Mg/3 Ml Neb Soln) 3 ml NEB Q6H [facility] Last Admin: 10/03/20 05:57 Dose: 3 ml Documented by: Amlodipine Besylate (Amlodipine 5 Mg Tab) 5 mg PO DAILY [facility]OG[facility] Guaifenesin/Codeine Phosphate (Codeine/Guaifenesin 10-100 Mg/5 Ml Syrup 5 Ml Cup) 10 ml PO Q6H [facility]OG[facility] Last Admin: 10/03/20 05:57 Dose: 10 ml Documented by: Dextrose/Sodium Chloride (Dextrose 5%-Normal Saline) 1,000 mls @ 999 mls/hr IV ASDIRECTED [facility]OGER Last Admin: 10/02/20 08:38 Dose: 999 mls/hr Documented by: Levothyroxine Sodium (Levothyroxine 200 Mcg Tab) 200 mcg PO ACBREAKFAST ROGER Last Admin: 10/03/20 06:47 Dose: 200 mcg Documented by: Levothyroxine Sodium (Levothyroxine 75 Mcg Tab) 75 mcg PO ACBREAKFAST ROGER Last Admin: 10/03/20 06:47 Dose: 75 mcg Documented by: Lorazepam (Lorazepam 1 Mg Tab) 0 mg PO ASDIRECTED ROGER; Protocol Last Admin: 10/02/20 22:46 Dose: 1 mg Documented by: Lorazepam (Lorazepam 2 Mg/Ml Sdv) 0 mg IVPUSH ASDIRECTED PRN; Protocol PRN Reason: ALCOHOL WITHDRAWL Metoprolol Tartrate (Metoprolol Tartrate 100 Mg Tab) 100 mg PO BID [facility] Last Admin: 10/02/20 20:08 Dose: 100 mg Documented by: Multivitamins/Minerals/Vitamin C (Multivitamin, Childrens Tab.Chew) 1 tab PO DAILY [facility] Last Admin: 10/02/20 16:41 Dose: 1 tab Documented by: Ondansetron HCl (Ondansetron 4 Mg/2 Ml Sdv) 4 mg IV Q4H PRN PRN Reason: Nausea/Vomiting Senna/Docusate Sodium (Docusate Sodium/Sennosides 50-8.6 Mg Tab) 1 tab PO BID PRN PRN Reason: Constipation Sertraline HCl (Sertraline 50 Mg Tab) 150 mg PO DAILY [facility] Sodium Chloride (Sodium Chloride 0.9% 10 Ml Syringe) 10 ml FLUSH ASDIRECTED PRN PRN Reason: Keep Vein Open Discontinued Medications Diazepam (Diazepam 5 Mg Tab) 10 mg PO ONETIME ONE Stop: 10/02/20 09:16 Last Admin: 10/02/20 10:11 Dose: 10 mg Documented by: Enoxaparin Sodium (Enoxaparin 40 Mg/0.4 Ml Syringe) 40 mg SUBCUT Q24H [facility] Last Admin: 10/02/20 16:49 Dose: Not Given Documented by: Thiamine HCl 100 mg/ Sodium (Chloride) 101 mls @ 202 mls/hr IV NOW STA Stop: 10/02/20 08:23 Last Admin: 10/02/20 08:44 Dose: 202 mls/hr Documented by: Sodium Chloride (Normal Saline) 1,000 mls @ 125 mls/hr IV ASDIRECTED [facility] Last Admin: 10/03/20 01:17 Dose: 125 mls/hr Documented by: Levothyroxine Sodium (Levothyroxine 75 Mcg Tab) 75 mcg PO ONETIME ONE Stop: 10/02/20 18:19 Last Admin: 10/02/20 18:47 Dose: 75 mcg Documented by: Levothyroxine Sodium (Levothyroxine 200 Mcg Tab) 200 mcg PO ONETIME ONE Stop: 10/02/20 18:20 Last Admin: 10/02/20 18:46 Dose: 200 mcg Documented by: Lorazepam (Lorazepam 2 Mg/Ml Sdv) 0 mg IVPUSH Q4H PRN; Protocol PRN Reason: ALCOHOL WITHDRAWL Multivitamins/Minerals/Vitamin C (Multivitamin Tab) 1 tab PO NOW STA Stop: 10/02/20 08:23 Last Admin: 10/02/20 08:46 Dose: 1 tab Documented by: - Exam General: Alert, Oriented HEENT: Pupils Equal Neck: Supple Lungs: Clear to Auscultation Cardiovascular: Regular Rate Extremities: No Pedal Edema Skin: Warm Neurological: No New Focal Deficit Psy/Mental Status: Alert, Depressed - Patient Data Lab Results Last 24 hrs: Laboratory Results - last 24 hr 10/02/20 10/02/20 10/02/20 Range/Units 07:54 08:44 08:44 WBC 4.5 (3.2-10.1) x10-3/uL RBC 4.23 (3.90-5.90) x10(6)uL Hgb 12.5 L (12.9-17.7) g/dL Hct 38.6 (38.3-50.1) % MCV 91.2 (80.8-98.7) fL MCH 29.6 (27.0-33.3) pg MCHC 32.4 (28.7-35.3) g/dL RDW 24.7 H (12.4-15.0) % Plt Count 66 L (117-477) x10(3)uL MPV 8.1 (6.7-11.0) fL Neut % (Auto) 78.5 H (40.3-71.8) % Lymph % (Auto) 15.1 L (15.8-45.3) % [place] % (Auto) 5.2 L (5.5-15.2) % Eos % (Auto) 0.7 (0.1-6.8) % Baso % (Auto) 0.5 (0.3-3.8) % Neut # (Auto) 3.6 (1.7-6.9) x10-3/uL Lymph # (Auto) 0.7 (0.5-4.5) x10-3/uL [place] # (Auto) 0.2 (0.0-1.2) x10-3/uL Eos # (Auto) 0.0 (0.0-0.6) x10-3/uL Baso # (Auto) 0.0 (0.0-0.3) x10-3/uL Sodium 137 (135-145) mmol/L Potassium 5.1 (3.5-5.3) mmol/L Chloride 94 L (100-110) mmol/L Carbon Dioxide 17 L (21-32) mmol/L BUN 39 H (7-18) mg/dL Creatinine 1.5 H (0.70-1.30) mg/dL Est Cr Clr Drug Dosing 57.48 mL/min Estimated GFR (MDRD) 48 L (>60) BUN/Creatinine Ratio 26.0 H (9-20) Glucose 80 (80-116) mg/dL POC Glucose 61 L (74-100) mg/dL Hemoglobin A1c (<5.7) % Calcium 8.2 L (8.6-10.2) mg/dL Phosphorus (2.6-4.6) mg/dL Magnesium (1.8-2.5) mg/dL Total Bilirubin 1.3 (0.1-1.3) mg/dL AST 277 H* (5-25) IU/L ALT 98 H (12-36) U/L Alkaline Phosphatase 127 H (56-112) IU/L Troponin I (4.0-60.3) pg/mL Total Protein 7.7 (6.0-8.0) g/dL Albumin 3.6 (3.2-4.6) g/dL Globulin 4.1 g/dL Albumin/Globulin Ratio 0.9 Amylase (25-115) U/L Lipase (73-393) U/L TSH, Ultra Sensitive (0.36-3.74) IU/mL Ethyl Alcohol (<0.03) % SARS-CoV-2 RNA (SHARIF) (NEGATIVE) 10/02/20 10/02/20 10/02/20 Range/Units 08:44 08:44 08:44 WBC (3.2-10.1) x10-3/uL RBC (3.90-5.90) x10(6)uL Hgb (12.9-17.7) g/dL Hct (38.3-50.1) % MCV (80.8-98.7) fL MCH (27.0-33.3) pg MCHC (28.7-35.3) g/dL RDW (12.4-15.0) % Plt Count (117-477) x10(3)uL MPV (6.7-11.0) fL Neut % (Auto) (40.3-71.8) % Lymph % (Auto) (15.8-45.3) % [place] % (Auto) (5.5-15.2) % Eos % (Auto) (0.1-6.8) % Baso % (Auto) (0.3-3.8) % Neut # (Auto) (1.7-6.9) x10-3/uL Lymph # (Auto) (0.5-4.5) x10-3/uL [place] # (Auto) (0.0-1.2) x10-3/uL Eos # (Auto) (0.0-0.6) x10-3/uL Baso # (Auto) (0.0-0.3) x10-3/uL Sodium (135-145) mmol/L Potassium (3.5-5.3) mmol/L Chloride (100-110) mmol/L Carbon Dioxide (21-32) mmol/L BUN (7-18) mg/dL Creatinine (0.70-1.30) mg/dL Est Cr Clr Drug Dosing mL/min Estimated GFR (MDRD) (>60) BUN/Creatinine Ratio (9-20) Glucose (80-116) mg/dL POC Glucose (74-100) mg/dL Hemoglobin A1c (<5.7) % Calcium (8.6-10.2) mg/dL Phosphorus (2.6-4.6) mg/dL Magnesium 1.7 L (1.8-2.5) mg/dL Total Bilirubin (0.1-1.3) mg/dL AST (5-25) IU/L ALT (12-36) U/L Alkaline Phosphatase (56-112) IU/L Troponin I 25.3 (4.0-60.3) pg/mL Total Protein (6.0-8.0) g/dL Albumin (3.2-4.6) g/dL Globulin g/dL Albumin/Globulin Ratio Amylase (25-115) U/L Lipase (73-393) U/L TSH, Ultra Sensitive (0.36-3.74) IU/mL Ethyl Alcohol 0.27 H* (<0.03) % SARS-CoV-2 RNA (SHARIF) (NEGATIVE) 10/02/20 10/02/20 10/02/20 Range/Units 08:44 08:44 11:48 WBC (3.2-10.1) x10-3/uL RBC (3.90-5.90) x10(6)uL Hgb (12.9-17.7) g/dL Hct (38.3-50.1) % MCV (80.8-98.7) fL MCH (27.0-33.3) pg MCHC (28.7-35.3) g/dL RDW (12.4-15.0) % Plt Count (117-477) x10(3)uL MPV (6.7-11.0) fL Neut % (Auto) (40.3-71.8) % Lymph % (Auto) (15.8-45.3) % [place] % (Auto) (5.5-15.2) % Eos % (Auto) (0.1-6.8) % Baso % (Auto) (0.3-3.8) % Neut # (Auto) (1.7-6.9) x10-3/uL Lymph # (Auto) (0.5-4.5) x10-3/uL [place] # (Auto) (0.0-1.2) x10-3/uL Eos # (Auto) (0.0-0.6) x10-3/uL Baso # (Auto) (0.0-0.3) x10-3/uL Sodium (135-145) mmol/L Potassium (3.5-5.3) mmol/L Chloride (100-110) mmol/L Carbon Dioxide (21-32) mmol/L BUN (7-18) mg/dL Creatinine (0.70-1.30) mg/dL Est Cr Clr Drug Dosing mL/min Estimated GFR (MDRD) (>60) BUN/Creatinine Ratio (9-20) Glucose (80-116) mg/dL POC Glucose (74-100) mg/dL Hemoglobin A1c (<5.7) % Calcium (8.6-10.2) mg/dL Phosphorus (2.6-4.6) mg/dL Magnesium (1.8-2.5) mg/dL Total Bilirubin (0.1-1.3) mg/dL AST (5-25) IU/L ALT (12-36) U/L Alkaline Phosphatase (56-112) IU/L Troponin I (4.0-60.3) pg/mL Total Protein (6.0-8.0) g/dL Albumin (3.2-4.6) g/dL Globulin g/dL Albumin/Globulin Ratio Amylase 177 H (25-115) U/L Lipase 5339 H (73-393) U/L TSH, Ultra Sensitive (0.36-3.74) IU/mL Ethyl Alcohol (<0.03) % SARS-CoV-2 RNA (SHARIF) Negative (NEGATIVE) 10/02/20 10/02/20 10/02/20 Range/Units 11:50 17:15 17:15 WBC (3.2-10.1) x10-3/uL RBC (3.90-5.90) x10(6)uL Hgb (12.9-17.7) g/dL Hct (38.3-50.1) % MCV (80.8-98.7) fL MCH (27.0-33.3) pg MCHC (28.7-35.3) g/dL RDW (12.4-15.0) % Plt Count (117-477) x10(3)uL MPV (6.7-11.0) fL Neut % (Auto) (40.3-71.8) % Lymph % (Auto) (15.8-45.3) % [place] % (Auto) (5.5-15.2) % Eos % (Auto) (0.1-6.8) % Baso % (Auto) (0.3-3.8) % Neut # (Auto) (1.7-6.9) x10-3/uL Lymph # (Auto) (0.5-4.5) x10-3/uL [place] # (Auto) (0.0-1.2) x10-3/uL Eos # (Auto) (0.0-0.6) x10-3/uL Baso # (Auto) (0.0-0.3) x10-3/uL Sodium (135-145) mmol/L Potassium (3.5-5.3) mmol/L Chloride (100-110) mmol/L Carbon Dioxide (21-32) mmol/L BUN (7-18) mg/dL Creatinine (0.70-1.30) mg/dL Est Cr Clr Drug Dosing mL/min Estimated GFR (MDRD) (>60) BUN/Creatinine Ratio (9-20) Glucose (80-116) mg/dL POC Glucose (74-100) mg/dL Hemoglobin A1c 5.6 (<5.7) % Calcium (8.6-10.2) mg/dL Phosphorus 0.7 L* (2.6-4.6) mg/dL Magnesium (1.8-2.5) mg/dL Total Bilirubin (0.1-1.3) mg/dL AST (5-25) IU/L ALT (12-36) U/L Alkaline Phosphatase (56-112) IU/L Troponin I (4.0-60.3) pg/mL Total Protein (6.0-8.0) g/dL Albumin (3.2-4.6) g/dL Globulin g/dL Albumin/Globulin Ratio Amylase (25-115) U/L Lipase (73-393) U/L TSH, Ultra Sensitive 43.87 H* (0.36-3.74) IU/mL Ethyl Alcohol (<0.03) % SARS-CoV-2 RNA (SHARIF) (NEGATIVE) 10/03/20 10/03/20 Range/Units 06:55 06:55 WBC 3.8 (3.2-10.1) x10-3/uL RBC 3.48 L (3.90-5.90) x10(6)uL Hgb 10.2 L (12.9-17.7) g/dL Hct 31.5 L (38.3-50.1) % MCV 90.3 (80.8-98.7) fL MCH 29.3 (27.0-33.3) pg MCHC 32.5 (28.7-35.3) g/dL RDW 23.9 H (12.4-15.0) % Plt Count 35 L* (117-477) x10(3)uL MPV 9.2 (6.7-11.0) fL Neut % (Auto) 68.5 (40.3-71.8) % Lymph % (Auto) 20.7 (15.8-45.3) % [place] % (Auto) 8.4 (5.5-15.2) % Eos % (Auto) 1.8 (0.1-6.8) % Baso % (Auto) 0.6 (0.3-3.8) % Neut # (Auto) 2.6 (1.7-6.9) x10-3/uL Lymph # (Auto) 0.8 (0.5-4.5) x10-3/uL [place] # (Auto) 0.3 (0.0-1.2) x10-3/uL Eos # (Auto) 0.1 (0.0-0.6) x10-3/uL Baso # (Auto) 0.0 (0.0-0.3) x10-3/uL Sodium 137 (135-145) mmol/L Potassium 4.5 (3.5-5.3) mmol/L Chloride 99 L D (100-110) mmol/L Carbon Dioxide 26 (21-32) mmol/L BUN 39 H (7-18) mg/dL Creatinine 1.5 H (0.70-1.30) mg/dL Est Cr Clr Drug Dosing 66.00 mL/min Estimated GFR (MDRD) 48 L (>60) BUN/Creatinine Ratio 26.0 H (9-20) Glucose 91 (80-116) mg/dL POC Glucose (74-100) mg/dL Hemoglobin A1c (<5.7) % Calcium 8.4 L (8.6-10.2) mg/dL Phosphorus (2.6-4.6) mg/dL Magnesium (1.8-2.5) mg/dL Total Bilirubin 1.0 (0.1-1.3) mg/dL AST 165 H* D (5-25) IU/L ALT 67 H D (12-36) U/L Alkaline Phosphatase 102 (56-112) IU/L Troponin I (4.0-60.3) pg/mL Total Protein 6.6 (6.0-8.0) g/dL Albumin 3.0 L (3.2-4.6) g/dL Globulin 3.6 g/dL Albumin/Globulin Ratio 0.8 Amylase (25-115) U/L Lipase (73-393) U/L TSH, Ultra Sensitive (0.36-3.74) IU/mL Ethyl Alcohol (<0.03) % SARS-CoV-2 RNA (SHARIF) (NEGATIVE) Result Diagrams: 10/03/20 06:55 10/03/20 06:55 Sepsis Event Note - Evaluation Sepsis Screening Result: No Definite Risk - Focused Exam Vital Signs: Vital Signs Temp Pulse Resp BP Pulse Ox 10/03/20 05:57 72 10/03/20 03:00 98.8 F 74 16 144/82 H 95 10/02/20 23:00 99.2 F 72 16 153/73 H 95 10/02/20 22:46 98 - Problem List & Annotations (1) OSCAR (acute kidney injury) SNOMED Code(s): 83162505, 85328501 Code(s): N17.9 - ACUTE KIDNEY FAILURE, UNSPECIFIED Status: Acute Current Visit: Yes (2) Obesity SNOMED Code(s): 474479090, 217035607 Code(s): E66.9 - OBESITY, UNSPECIFIED Status: Acute Current Visit: Yes Qualifiers: Obesity type: due to excess calories (3) Hypothyroidism SNOMED Code(s): 34124498 Code(s): E03.9 - HYPOTHYROIDISM, UNSPECIFIED Status: Chronic Current Visit: Yes Qualifiers: Hypothyroidism type: unspecified Qualified Code(s): E03.9 - Hypothyroidism, unspecified (4) Hypomagnesemia SNOMED Code(s): 184155242 Code(s): E83.42 - HYPOMAGNESEMIA Status: Chronic Current Visit: Yes (5) Hypophosphatemia SNOMED Code(s): 3696235 Code(s): E83.39 - OTHER DISORDERS OF PHOSPHORUS METABOLISM Status: Chronic Current Visit: Yes (6) MDD (major depressive disorder) SNOMED Code(s): 702909406 Code(s): F32.9 - MAJOR DEPRESSIVE DISORDER, SINGLE EPISODE, UNSPECIFIED Status: Chronic Current Visit: Yes Qualifiers: Major depression recurrence: recurrent Active/Remission status: currently active Psychotic features: without psychotic features (7) Tobacco abuse SNOMED Code(s): 751697796 Code(s): Z72.0 - TOBACCO USE Status: Chronic Current Visit: Yes (8) Chronic cough SNOMED Code(s): 19255955 Code(s): R05 - COUGH Status: Acute Current Visit: Yes (9) Alcoholism SNOMED Code(s): 4038673 Code(s): F10.20 - ALCOHOL DEPENDENCE, UNCOMPLICATED Status: Acute Current Visit: Yes (10) Weakness SNOMED Code(s): 71661255 Code(s): R53.1 - WEAKNESS Status: Acute Current Visit: Yes (11) Alcohol withdrawal syndrome SNOMED Code(s): 031499853 Code(s): F10.239 - ALCOHOL DEPENDENCE WITH WITHDRAWAL, UNSPECIFIED Status: Acute Current Visit: No Qualifiers: Complication of substance-induced condition: with unspecified complication Qualified Code(s): F10.239 - Alcohol dependence with withdrawal, unspecified (12) Peripheral neuropathy SNOMED Code(s): 588188639 Code(s): G62.9 - POLYNEUROPATHY, UNSPECIFIED Status: Acute Current Visit: Yes Qualifiers: Peripheral neuropathy type: polyneuropathy, unspecified Qualified Code(s): G62.9 - Polyneuropathy, unspecified - Problem List Review Problem List Initiated/Reviewed/Updated: Yes - My Orders Last 24 Hours: My Active Orders 10/02/20 16:55 RT Aerosol Therapy [RC] ASDIRECTED 10/02/20 16:56 OT Evaluation and Treatment [CONS] Routine 10/02/20 17:00 Albuterol/Ipratropium [DuoNeb 3.0-0.5 MG/3 ML] 3 ml NEB Q6H Codeine/guaiFENesin [Robitussin AC] 10 ml PO Q6H 10/02/20 17:15 AMMONIA, PLASMA Stat 10/02/20 21:00 Metoprolol Tartrate [Lopressor] 100 mg PO BID 10/03/20 07:30 Levothyroxine 200 mcg PO ACBREAKFAST Levothyroxine 75 mcg PO ACBREAKFAST 10/03/20 08:14 Convert IV to [place] [OM.PC] Routine 10/03/20 09:00 Sertraline [Zoloft] 150 mg PO DAILY amLODIPine [Norvasc] 5 mg PO DAILY - Plan Plan:: PT/OT. DC IVF. Replace phosphorous
[2020-10-03] MEDS: amLODIPine 5 MG Tab PO SCH (09:15)
[2020-10-03] MEDS: Metoprolol Tartrate 100 MG Tab PO SCH ×2 (09:15→21:11)
[2020-10-03] MEDS: Potassium Phosphate,Mb-Db/Sodium Phosphate,Mb-Db Packet PO SCH ×3 (09:15→21:12)
[2020-10-03] MEDS: Sertraline 50 MG Tab PO SCH (09:16)
[2020-10-03] MEDS: Multivitamin, Childrens Tab.Chew PO SCH (09:19)
[2020-10-03] MEDS ORDERED: Calcium Acetate 667 MG Cap PO SCH (12:00)
[2020-10-03] MEDS: LORazepam 1 MG Tab PO SCH (21:09)
[2020-10-04] MEDS: Albuterol/Ipratropium 3.0-0.5 MG/3 ML Neb Soln NEB SCH ×4 (05:05→22:35)
[2020-10-04] MEDS: Codeine/guaiFENesin 10-100 MG/5 ML Syrup 5 ML Cup PO SCH ×4 (05:05→22:45)
[2020-10-04] MEDS: Levothyroxine 75 MCG Tab PO SCH (06:52)
[2020-10-04] MEDS: Multivitamin, Childrens Tab.Chew PO SCH (08:38)
[2020-10-04] MEDS: Sertraline 50 MG Tab PO SCH (08:38)
[2020-10-04] MEDS: amLODIPine 5 MG Tab PO SCH (08:38)
[2020-10-04] MEDS: Metoprolol Tartrate 100 MG Tab PO SCH ×2 (08:39→20:21)
[2020-10-04] MEDS: Potassium Phosphate,Mb-Db/Sodium Phosphate,Mb-Db Packet PO SCH ×3 (08:39→20:21)
--- NOTE | 2020-10-04 10:14 | PCM.PN ---
- General Info Date of Service: 10/04/20 Subjective Update: Please been noted to be irritable, and uncooperative. He complains of numbness and weakness of the legs, and inability to ambulate. There was mention of visual hallucination yesterday. Functional Status: Reports: Pain Controlled - Review of Systems General: Reports: Weakness HEENT: Reports: No Symptoms Pulmonary: Reports: No Symptoms Cardiovascular: Reports: No Symptoms Gastrointestinal: Reports: No Symptoms Genitourinary: Reports: No Symptoms Musculoskeletal: Reports: No Symptoms - Patient Data Vitals - Most Recent: Last Vital Signs Temp 98.3 F 10/04/20 07:15 Pulse 71 10/04/20 08:39 Resp 20 10/04/20 07:15 BP 150/89 H 10/04/20 08:39 Pulse Ox 98 10/04/20 07:15 Weight - Most Recent: 134.581 kg I&O - Last 24 Hours: Intake & Output 10/03/20 10/04/20 10/04/20 22:59 06:59 14:59 Intake Total 1010 Balance 1010 Lab Results Last 24 Hours: Laboratory Results - last 24 hr 10/04/20 10/04/20 Range/Units 06:30 06:30 WBC 3.8 (3.2-10.1) x10-3/uL RBC 3.39 L (3.90-5.90) x10(6)uL Hgb 10.0 L (12.9-17.7) g/dL Hct 30.8 L (38.3-50.1) % MCV 90.8 (80.8-98.7) fL MCH 29.4 (27.0-33.3) pg MCHC 32.4 (28.7-35.3) g/dL RDW 23.7 H (12.4-15.0) % Plt Count 34 L* (117-477) x10(3)uL MPV 9.8 (6.7-11.0) fL Neut % (Auto) 67.6 (40.3-71.8) % Lymph % (Auto) 19.4 (15.8-45.3) % Glynn % (Auto) 8.5 (5.5-15.2) % Eos % (Auto) 4.0 (0.1-6.8) % Baso % (Auto) 0.5 (0.3-3.8) % Neut # (Auto) 2.6 (1.7-6.9) x10-3/uL Lymph # (Auto) 0.7 (0.5-4.5) x10-3/uL Glynn # (Auto) 0.3 (0.0-1.2) x10-3/uL Eos # (Auto) 0.2 (0.0-0.6) x10-3/uL Baso # (Auto) 0.0 (0.0-0.3) x10-3/uL Sodium 135 (135-145) mmol/L Potassium 4.1 (3.5-5.3) mmol/L Chloride 98 L (100-110) mmol/L Carbon Dioxide 27 (21-32) mmol/L BUN 24 H D (7-18) mg/dL Creatinine 1.1 (0.70-1.30) mg/dL Est Cr Clr Drug Dosing 90.00 mL/min Estimated GFR (MDRD) > 60 (>60) BUN/Creatinine Ratio 21.8 H (9-20) Glucose 110 (80-116) mg/dL Calcium 8.1 L (8.6-10.2) mg/dL Total Bilirubin 0.8 (0.1-1.3) mg/dL AST 95 H D (5-25) IU/L ALT 53 H D (12-36) U/L Alkaline Phosphatase 98 (56-112) IU/L Total Protein 6.3 (6.0-8.0) g/dL Albumin 2.9 L (3.2-4.6) g/dL Globulin 3.4 g/dL Albumin/Globulin Ratio 0.9 Med Orders - Current: Current Medications Acetaminophen (Acetaminophen 325 Mg Tab) 650 mg PO Q4H PRN PRN Reason: Pain (Mild 1-3)/fever Last Admin: 10/02/20 20:08 Dose: 650 mg Documented by: Albuterol/Ipratropium (Albuterol/Ipratropium 3.0-0.5 Mg/3 Ml Neb Soln) 3 ml NEB Q6H ROGER Last Admin: 10/04/20 05:05 Dose: 3 ml Documented by: Amlodipine Besylate (Amlodipine 5 Mg Tab) 5 mg PO DAILY [facility] Last Admin: 10/04/20 08:38 Dose: 5 mg Documented by: Guaifenesin/Codeine Phosphate (Codeine/Guaifenesin 10-100 Mg/5 Ml Syrup 5 Ml Cup) 10 ml PO Q6H [facility] Last Admin: 10/04/20 05:05 Dose: 10 ml Documented by: Thiamine HCl 100 mg/ Sodium (Chloride) 101 mls @ 202 mls/hr IV DAILY [facility] Levothyroxine Sodium (Levothyroxine 200 Mcg Tab) 200 mcg PO ACBREAKFAST [facility] Last Admin: 10/04/20 06:52 Dose: 200 mcg Documented by: Levothyroxine Sodium (Levothyroxine 75 Mcg Tab) 75 mcg PO ACBREAKFAST [facility] Last Admin: 10/04/20 06:52 Dose: 75 mcg Documented by: Lorazepam (Lorazepam 1 Mg Tab) 0 mg PO ASDIRECTED ROGER; Protocol Last Admin: 10/03/20 21:09 Dose: 1 mg Documented by: Lorazepam (Lorazepam 2 Mg/Ml Sdv) 0 mg IVPUSH ASDIRECTED PRN; Protocol PRN Reason: ALCOHOL WITHDRAWL Metoprolol Tartrate (Metoprolol Tartrate 100 Mg Tab) 100 mg PO BID [facility] Last Admin: 10/04/20 08:39 Dose: 100 mg Documented by: Multivitamins/Minerals/Vitamin C (Multivitamin, Childrens Tab.Chew) 1 tab PO DAILY [facility] Last Admin: 10/04/20 08:38 Dose: 1 tab Documented by: Ondansetron HCl (Ondansetron 4 Mg/2 Ml Sdv) 4 mg IV Q4H PRN PRN Reason: Nausea/Vomiting Potassium Phos/Sodium Phos (Potassium Phosphate,Mb-Db/Sodium Phosphate,Mb-Db Packet) 1 each PO TID [facility] Last Admin: 10/04/20 08:39 Dose: 1 package Documented by: Senna/Docusate Sodium (Docusate Sodium/Sennosides 50-8.6 Mg Tab) 1 tab PO BID PRN PRN Reason: Constipation Sertraline HCl (Sertraline 50 Mg Tab) 150 mg PO DAILY [facility] Last Admin: 10/04/20 08:38 Dose: 150 mg Documented by: Sodium Chloride (Sodium Chloride 0.9% 10 Ml Syringe) 10 ml FLUSH ASDIRECTED PRN PRN Reason: Keep Vein Open Discontinued Medications Diazepam (Diazepam 5 Mg Tab) 10 mg PO ONETIME ONE Stop: 10/02/20 09:16 Last Admin: 10/02/20 10:11 Dose: 10 mg Documented by: Enoxaparin Sodium (Enoxaparin 40 Mg/0.4 Ml Syringe) 40 mg SUBCUT Q24H [facility] Last Admin: 10/02/20 16:49 Dose: Not Given Documented by: Dextrose/Sodium Chloride (Dextrose 5%-Normal Saline) 1,000 mls @ 999 mls/hr IV ASDIRECTED [facility] Last Admin: 10/02/20 08:38 Dose: 999 mls/hr Documented by: Thiamine HCl 100 mg/ Sodium (Chloride) 101 mls @ 202 mls/hr IV NOW STA Stop: 10/02/20 08:23 Last Admin: 10/02/20 08:44 Dose: 202 mls/hr Documented by: Sodium Chloride (Normal Saline) 1,000 mls @ 125 mls/hr IV ASDIRECTED [facility] Last Admin: 10/03/20 01:17 Dose: 125 mls/hr Documented by: Sodium Chloride (Normal Saline) 1,000 mls @ 125 mls/hr IV ASDIRECTED [facility] Last Admin: 10/03/20 17:53 Dose: 125 mls/hr Documented by: Levothyroxine Sodium (Levothyroxine 75 Mcg Tab) 75 mcg PO ONETIME ONE Stop: 10/02/20 18:19 Last Admin: 10/02/20 18:47 Dose: 75 mcg Documented by: Levothyroxine Sodium (Levothyroxine 200 Mcg Tab) 200 mcg PO ONETIME ONE Stop: 10/02/20 18:20 Last Admin: 10/02/20 18:46 Dose: 200 mcg Documented by: Lorazepam (Lorazepam 2 Mg/Ml Sdv) 0 mg IVPUSH Q4H PRN; Protocol PRN Reason: ALCOHOL WITHDRAWL Multivitamins/Minerals/Vitamin C (Multivitamin Tab) 1 tab PO NOW STA Stop: 10/02/20 08:23 Last Admin: 10/02/20 08:46 Dose: 1 tab Documented by: - Exam General: Alert HEENT: Pupils Equal Neck: Supple Lungs: Clear to Auscultation Cardiovascular: Regular Rate Extremities: Normal Inspection Neurological: No New Focal Deficit Psy/Mental Status: Alert, Depressed - Patient Data Lab Results Last 24 hrs: Laboratory Results - last 24 hr 10/04/20 10/04/20 Range/Units 06:30 06:30 WBC 3.8 (3.2-10.1) x10-3/uL RBC 3.39 L (3.90-5.90) x10(6)uL Hgb 10.0 L (12.9-17.7) g/dL Hct 30.8 L (38.3-50.1) % MCV 90.8 (80.8-98.7) fL MCH 29.4 (27.0-33.3) pg MCHC 32.4 (28.7-35.3) g/dL RDW 23.7 H (12.4-15.0) % Plt Count 34 L* (117-477) x10(3)uL MPV 9.8 (6.7-11.0) fL Neut % (Auto) 67.6 (40.3-71.8) % Lymph % (Auto) 19.4 (15.8-45.3) % Glynn % (Auto) 8.5 (5.5-15.2) % Eos % (Auto) 4.0 (0.1-6.8) % Baso % (Auto) 0.5 (0.3-3.8) % Neut # (Auto) 2.6 (1.7-6.9) x10-3/uL Lymph # (Auto) 0.7 (0.5-4.5) x10-3/uL Glynn # (Auto) 0.3 (0.0-1.2) x10-3/uL Eos # (Auto) 0.2 (0.0-0.6) x10-3/uL Baso # (Auto) 0.0 (0.0-0.3) x10-3/uL Sodium 135 (135-145) mmol/L Potassium 4.1 (3.5-5.3) mmol/L Chloride 98 L (100-110) mmol/L Carbon Dioxide 27 (21-32) mmol/L BUN 24 H D (7-18) mg/dL Creatinine 1.1 (0.70-1.30) mg/dL Est Cr Clr Drug Dosing 90.00 mL/min Estimated GFR (MDRD) > 60 (>60) BUN/Creatinine Ratio 21.8 H (9-20) Glucose 110 (80-116) mg/dL Calcium 8.1 L (8.6-10.2) mg/dL Total Bilirubin 0.8 (0.1-1.3) mg/dL AST 95 H D (5-25) IU/L ALT 53 H D (12-36) U/L Alkaline Phosphatase 98 (56-112) IU/L Total Protein 6.3 (6.0-8.0) g/dL Albumin 2.9 L (3.2-4.6) g/dL Globulin 3.4 g/dL Albumin/Globulin Ratio 0.9 Result Diagrams: 10/04/20 06:30 10/04/20 06:30 Sepsis Event Note - Evaluation Sepsis Screening Result: No Definite Risk - Focused Exam Vital Signs: Vital Signs Temp Temp Pulse Pulse Resp BP BP 10/04/20 08:39 71 150/89 H 10/04/20 08:38 150/89 H 10/04/20 07:15 98.3 F 71 20 150/89 H 10/04/20 03:21 98.6 F 70 17 144/84 H 10/03/20 23:24 98.1 F 69 18 141/87 H Pulse Ox 10/04/20 08:39 10/04/20 08:38 10/04/20 07:15 98 10/04/20 03:21 98 10/03/20 23:24 95 - Problem List & Annotations (1) OSCAR (acute kidney injury) SNOMED Code(s): 54848268, 60887063 Code(s): N17.9 - ACUTE KIDNEY FAILURE, UNSPECIFIED Status: Acute Current Visit: Yes (2) Obesity SNOMED Code(s): 823636371, 694889202 Code(s): E66.9 - OBESITY, UNSPECIFIED Status: Acute Current Visit: Yes Qualifiers: Obesity type: due to excess calories (3) Hypothyroidism SNOMED Code(s): 42109682 Code(s): E03.9 - HYPOTHYROIDISM, UNSPECIFIED Status: Chronic Current Visit: Yes Qualifiers: Hypothyroidism type: unspecified Qualified Code(s): E03.9 - Hypothyroidism, unspecified (4) Hypomagnesemia SNOMED Code(s): 343284438 Code(s): E83.42 - HYPOMAGNESEMIA Status: Chronic Current Visit: Yes (5) Hypophosphatemia SNOMED Code(s): 3733533 Code(s): E83.39 - OTHER DISORDERS OF PHOSPHORUS METABOLISM Status: Chronic Current Visit: Yes (6) MDD (major depressive disorder) SNOMED Code(s): 709972862 Code(s): F32.9 - MAJOR DEPRESSIVE DISORDER, SINGLE EPISODE, UNSPECIFIED Status: Chronic Current Visit: Yes Qualifiers: Major depression recurrence: recurrent Active/Remission status: currently active Psychotic features: without psychotic features (7) Tobacco abuse SNOMED Code(s): 642020410 Code(s): Z72.0 - TOBACCO USE Status: Chronic Current Visit: Yes (8) Chronic cough SNOMED Code(s): 04757499 Code(s): R05 - COUGH Status: Acute Current Visit: Yes (9) Alcoholism SNOMED Code(s): 6272206 Code(s): F10.20 - ALCOHOL DEPENDENCE, UNCOMPLICATED Status: Acute Current Visit: Yes (10) Weakness SNOMED Code(s): 79380827 Code(s): R53.1 - WEAKNESS Status: Acute Current Visit: Yes (11) Alcohol withdrawal syndrome SNOMED Code(s): 984112542 Code(s): F10.239 - ALCOHOL DEPENDENCE WITH WITHDRAWAL, UNSPECIFIED Status: Acute Current Visit: No Qualifiers: Complication of substance-induced condition: with unspecified complication Qualified Code(s): F10.239 - Alcohol dependence with withdrawal, unspecified (12) Peripheral neuropathy SNOMED Code(s): 085763494 Code(s): G62.9 - POLYNEUROPATHY, UNSPECIFIED Status: Acute Current Visit: Yes Qualifiers: Peripheral neuropathy type: polyneuropathy, unspecified Qualified Code(s): G62.9 - Polyneuropathy, unspecified - Problem List Review Problem List Initiated/Reviewed/Updated: Yes - My Orders Last 24 Hours: My Active Orders 10/04/20 10:12 Head wo Cont [CT] Routine 10/04/20 10:15 Thiamine [Vitamin B-1] 100 mg Sodium Chloride 0.9% [Normal Saline] 100 ml IV DAILY 10/05/20 05:11 AMYLASE [CHEM] AM CBC WITH AUTO DIFF [HEME] AM COMPREHENSIVE METABOLIC PN,CMP [CHEM] AM LIPASE [CHEM] AM - Plan Plan:: Start thiamine IV, and obtain CT of the head. Will transition to inpatient care. Continue physical therapy, and CIWA protocol.
[2020-10-04] MEDS: Thiamine 100 MG in Sodium Chloride 0.9% 100 ML IV SCH (10:40)
[2020-10-04] MEDS: Sodium Chloride 0.9% 10 ML Syringe FLUSH PRN (10:40)
--- NOTE | 2020-10-04 15:29 | CT ---
INDICATION: Difficulty walking. CT HEAD WITHOUT CONTRAST: Spiral 3.75 mm axial sections were obtained through the brain without contrast with axial, sagittal and coronal reconstructions 10/04/20 - no comparisons. Total exam DLP was 1348.07 mGy-cm. Mastoid air cells and paranasal sinuses appear to be adequately aerated. Orbits appear to be intact. Cranium appears to be intact. No shift of midline structures was noted. The ventricles are prominent compatible with central atrophy. Calcifications are noted in the vertebral and internal carotid arteries. While no focal abnormal area of density was identified, there is noted poor differentiation of the escalante-white matter interface with relatively increased density of the white matter in general raising question of possible global hypoxic event or other cytotoxic etiology. This should be correlated clinically. IMPRESSION: 1. Loss of escalante-white matter interface globally raising question of process such as anoxic encephalopathy, although other etiology cannot be excluded. 2. Central atrophy. 3. Cerebrovascular disease with arterial calcifications noted. Report was called to Dr. Dennison at 1347 hours. [facility]
[2020-10-04] MEDS: Magnesium Oxide 400 MG Tab PO SCH (20:20)
[2020-10-05] MEDS: Codeine/guaiFENesin 10-100 MG/5 ML Syrup 5 ML Cup PO SCH ×2 (05:33→11:05)
[2020-10-05] MEDS: Albuterol/Ipratropium 3.0-0.5 MG/3 ML Neb Soln NEB SCH ×4 (05:34→22:40)
[2020-10-05] MEDS: Levothyroxine 75 MCG Tab PO SCH (06:43)
[2020-10-05] MEDS: Potassium Phosphate,Mb-Db/Sodium Phosphate,Mb-Db Packet PO SCH ×3 (08:54→20:00)
[2020-10-05] MEDS: Magnesium Oxide 400 MG Tab PO SCH ×2 (08:54→20:01)
[2020-10-05] MEDS: Metoprolol Tartrate 100 MG Tab PO SCH ×2 (08:54→20:01)
[2020-10-05] MEDS: Multivitamin, Childrens Tab.Chew PO SCH (08:54)
[2020-10-05] MEDS: amLODIPine 5 MG Tab PO SCH (08:55)
[2020-10-05] MEDS: Sertraline 50 MG Tab PO SCH (08:55)
[2020-10-05] MEDS: Thiamine 100 MG in Sodium Chloride 0.9% 100 ML IV SCH (08:58)
[2020-10-05] MEDS: Calcium Carbonate 500 MG Tab.Chew PO PRN ×2 (11:33→14:14)
--- NOTE | 2020-10-05 12:17 | PCM.PN ---
- General Info Date of Service: 10/05/20 Subjective Update: Still weak, states he hasn't felt his feet for a few years but has been getting worse. He states he has had visual hallucinations in the past when he went through DTs due to his alcohol abuse but denies any seizures. States his eyes are always watery but denies any itching or discharge. Denies any abdominal pain, nausea or vomiting. States his appetite is poor, has dry heaves with it but has not used any Zofran since admission. PT/OT are seeing him. - Patient Data Vitals - Most Recent: Last Vital Signs Temp 97 F 10/05/20 11:28 Pulse 66 10/05/20 11:28 Resp 20 10/05/20 11:28 BP 117/68 10/05/20 11:28 Pulse Ox 96 10/05/20 11:28 Weight - Most Recent: 295 lb 12.8 oz Lab Results Last 24 Hours: Laboratory Results - last 24 hr 10/02/20 10/05/20 10/05/20 Range/Units 17:15 06:20 06:20 WBC 4.5 (3.2-10.1) x10-3/uL RBC 3.41 L (3.90-5.90) x10(6)uL Hgb 10.1 L (12.9-17.7) g/dL Hct 31.3 L (38.3-50.1) % MCV 91.7 (80.8-98.7) fL MCH 29.6 (27.0-33.3) pg MCHC 32.3 (28.7-35.3) g/dL RDW 23.7 H (12.4-15.0) % Plt Count 41 L (117-477) x10(3)uL MPV 8.7 (6.7-11.0) fL Neut % (Auto) 63.5 (40.3-71.8) % Lymph % (Auto) 23.5 (15.8-45.3) % Davison % (Auto) 9.0 (5.5-15.2) % Eos % (Auto) 3.7 (0.1-6.8) % Baso % (Auto) 0.3 (0.3-3.8) % Neut # (Auto) 2.9 (1.7-6.9) x10-3/uL Lymph # (Auto) 1.1 (0.5-4.5) x10-3/uL Davison # (Auto) 0.4 (0.0-1.2) x10-3/uL Eos # (Auto) 0.2 (0.0-0.6) x10-3/uL Baso # (Auto) 0.0 (0.0-0.3) x10-3/uL Sodium 134 L (135-145) mmol/L Potassium 4.1 (3.5-5.3) mmol/L Chloride 96 L (100-110) mmol/L Carbon Dioxide 28 (21-32) mmol/L BUN 22 H (7-18) mg/dL Creatinine 1.1 (0.70-1.30) mg/dL Est Cr Clr Drug Dosing 90.00 mL/min Estimated GFR (MDRD) > 60 (>60) BUN/Creatinine Ratio 20.0 (9-20) Glucose 110 (80-116) mg/dL Calcium 7.9 L (8.6-10.2) mg/dL Phosphorus 2.7 (2.6-4.6) mg/dL Total Bilirubin 0.6 (0.1-1.3) mg/dL AST 78 H D (5-25) IU/L ALT 48 H (12-36) U/L Alkaline Phosphatase 98 (56-112) IU/L Ammonia 57 (40-200) ug/dL Total Protein 6.5 (6.0-8.0) g/dL Albumin 2.9 L (3.2-4.6) g/dL Globulin 3.6 g/dL Albumin/Globulin Ratio 0.8 Amylase 67 (25-115) U/L Lipase (73-393) U/L Vitamin B12 (193-986) pg/mL 10/05/20 10/05/20 Range/Units 06:20 06:20 WBC (3.2-10.1) x10-3/uL RBC (3.90-5.90) x10(6)uL Hgb (12.9-17.7) g/dL Hct (38.3-50.1) % MCV (80.8-98.7) fL MCH (27.0-33.3) pg MCHC (28.7-35.3) g/dL RDW (12.4-15.0) % Plt Count (117-477) x10(3)uL MPV (6.7-11.0) fL Neut % (Auto) (40.3-71.8) % Lymph % (Auto) (15.8-45.3) % Davison % (Auto) (5.5-15.2) % Eos % (Auto) (0.1-6.8) % Baso % (Auto) (0.3-3.8) % Neut # (Auto) (1.7-6.9) x10-3/uL Lymph # (Auto) (0.5-4.5) x10-3/uL Davison # (Auto) (0.0-1.2) x10-3/uL Eos # (Auto) (0.0-0.6) x10-3/uL Baso # (Auto) (0.0-0.3) x10-3/uL Sodium (135-145) mmol/L Potassium (3.5-5.3) mmol/L Chloride (100-110) mmol/L Carbon Dioxide (21-32) mmol/L BUN (7-18) mg/dL Creatinine (0.70-1.30) mg/dL Est Cr Clr Drug Dosing mL/min Estimated GFR (MDRD) (>60) BUN/Creatinine Ratio (9-20) Glucose (80-116) mg/dL Calcium (8.6-10.2) mg/dL Phosphorus (2.6-4.6) mg/dL Total Bilirubin (0.1-1.3) mg/dL AST (5-25) IU/L ALT (12-36) U/L Alkaline Phosphatase (56-112) IU/L Ammonia (40-200) ug/dL Total Protein (6.0-8.0) g/dL Albumin (3.2-4.6) g/dL Globulin g/dL Albumin/Globulin Ratio Amylase (25-115) U/L Lipase 1190 H (73-393) U/L Vitamin B12 1179 H (193-986) pg/mL Med Orders - Current: Current Medications Acetaminophen (Acetaminophen 325 Mg Tab) 650 mg PO Q4H PRN PRN Reason: Pain (Mild 1-3)/fever Last Admin: 10/02/20 20:08 Dose: 650 mg Documented by: Albuterol/Ipratropium (Albuterol/Ipratropium 3.0-0.5 Mg/3 Ml Neb Soln) 3 ml NEB Q6H [facility] Last Admin: 10/05/20 11:05 Dose: 3 ml Documented by: Amlodipine Besylate (Amlodipine 5 Mg Tab) 5 mg PO DAILY [facility] Last Admin: 10/05/20 08:55 Dose: 5 mg Documented by: Calcium Carbonate/Glycine (Calcium Carbonate 500 Mg Tab.Chew) 500 mg PO Q2H PRN PRN Reason: Indigestion Last Admin: 10/05/20 11:33 Dose: 500 mg Documented by: Guaifenesin/Codeine Phosphate (Codeine/Guaifenesin 10-100 Mg/5 Ml Syrup 5 Ml Cup) 10 ml PO Q6H [facility] Last Admin: 10/05/20 11:05 Dose: 10 ml Documented by: Levothyroxine Sodium (Levothyroxine 200 Mcg Tab) 200 mcg PO ACBREAKFAST [facility] Last Admin: 10/05/20 06:41 Dose: Not Given Documented by: Levothyroxine Sodium (Levothyroxine 75 Mcg Tab) 75 mcg PO ACBREAKFAST [facility] Last Admin: 10/05/20 06:43 Dose: 75 mcg Documented by: Lorazepam (Lorazepam 1 Mg Tab) 0 mg PO ASDIRECTED [facility]; Protocol Last Admin: 10/03/20 21:09 Dose: 1 mg Documented by: Magnesium Oxide (Magnesium Oxide 400 Mg Tab) 400 mg PO BID [facility] Last Admin: 10/05/20 08:54 Dose: 400 mg Documented by: Metoprolol Tartrate (Metoprolol Tartrate 100 Mg Tab) 100 mg PO BID [facility] Last Admin: 10/05/20 08:54 Dose: 100 mg Documented by: Multivitamins/Minerals/Vitamin C (Multivitamin, Childrens Tab.Chew) 1 tab PO DAILY [facility] Last Admin: 10/05/20 08:54 Dose: 1 tab Documented by: Potassium Phos/Sodium Phos (Potassium Phosphate,Mb-Db/Sodium Phosphate,Mb-Db Packet) 1 each PO TID [facility] Last Admin: 10/05/20 08:54 Dose: 1 package Documented by: Senna/Docusate Sodium (Docusate Sodium/Sennosides 50-8.6 Mg Tab) 1 tab PO BID PRN PRN Reason: Constipation Sertraline HCl (Sertraline 50 Mg Tab) 150 mg PO DAILY [facility] Last Admin: 10/05/20 08:55 Dose: 150 mg Documented by: Sodium Chloride (Sodium Chloride 0.9% 10 Ml Syringe) 10 ml FLUSH ASDIRECTED PRN PRN Reason: Keep Vein Open Last Admin: 10/04/20 10:40 Dose: 10 ml Documented by: Thiamine HCl (Thiamine 100 Mg Tab) 100 mg PO DAILY [facility] Discontinued Medications Diazepam (Diazepam 5 Mg Tab) 10 mg PO ONETIME ONE Stop: 10/02/20 09:16 Last Admin: 10/02/20 10:11 Dose: 10 mg Documented by: Enoxaparin Sodium (Enoxaparin 40 Mg/0.4 Ml Syringe) 40 mg SUBCUT Q24H [facility] Last Admin: 10/02/20 16:49 Dose: Not Given Documented by: Dextrose/Sodium Chloride (Dextrose 5%-Normal Saline) 1,000 mls @ 999 mls/hr IV ASDIRECTED [facility] Last Admin: 10/02/20 08:38 Dose: 999 mls/hr Documented by: Thiamine HCl 100 mg/ Sodium (Chloride) 101 mls @ 202 mls/hr IV NOW STA Stop: 10/02/20 08:23 Last Admin: 10/02/20 08:44 Dose: 202 mls/hr Documented by: Sodium Chloride (Normal Saline) 1,000 mls @ 125 mls/hr IV ASDIRECTED [facility] Last Admin: 10/03/20 01:17 Dose: 125 mls/hr Documented by: Sodium Chloride (Normal Saline) 1,000 mls @ 125 mls/hr IV ASDIRECTED [facility] Last Admin: 10/03/20 17:53 Dose: 125 mls/hr Documented by: Thiamine HCl 100 mg/ Sodium (Chloride) 101 mls @ 202 mls/hr IV DAILY [facility] Last Admin: 10/05/20 08:58 Dose: 202 mls/hr Documented by: Levothyroxine Sodium (Levothyroxine 75 Mcg Tab) 75 mcg PO ONETIME ONE Stop: 10/02/20 18:19 Last Admin: 10/02/20 18:47 Dose: 75 mcg Documented by: Levothyroxine Sodium (Levothyroxine 200 Mcg Tab) 200 mcg PO ONETIME ONE Stop: 10/02/20 18:20 Last Admin: 10/02/20 18:46 Dose: 200 mcg Documented by: Lorazepam (Lorazepam 2 Mg/Ml Sdv) 0 mg IVPUSH Q4H PRN; Protocol PRN Reason: ALCOHOL WITHDRAWL Lorazepam (Lorazepam 2 Mg/Ml Sdv) 0 mg IVPUSH ASDIRECTED PRN; Protocol PRN Reason: ALCOHOL WITHDRAWL Multivitamins/Minerals/Vitamin C (Multivitamin Tab) 1 tab PO NOW STA Stop: 10/02/20 08:23 Last Admin: 10/02/20 08:46 Dose: 1 tab Documented by: Ondansetron HCl (Ondansetron 4 Mg/2 Ml Sdv) 4 mg IV Q4H PRN PRN Reason: Nausea/Vomiting - Exam General: Alert, Oriented, Cooperative, No Acute Distress HEENT: Pupils Equal, Pupils Reactive, EOMI, Other (conjunctiva, injected b ilateral; no discharge.) Lungs: Clear to Auscultation, Normal Respiratory Effort Cardiovascular: Regular Rate, Regular Rhythm GI/Abdominal Exam: Normal Bowel Sounds, Soft, Non-Tender, No Distention Extremities: No Pedal Edema Peripheral Pulses: 2+: Radial (L), Radial (R) Skin: Warm, Dry, Intact Neurological: Normal Speech, Other (tremors, mild) Psy/Mental Status: No: Hallucinations (today) - Patient Data Lab Results Last 24 hrs: Laboratory Results - last 24 hr 10/02/20 10/05/20 10/05/20 Range/Units 17:15 06:20 06:20 WBC 4.5 (3.2-10.1) x10-3/uL RBC 3.41 L (3.90-5.90) x10(6)uL Hgb 10.1 L (12.9-17.7) g/dL Hct 31.3 L (38.3-50.1) % MCV 91.7 (80.8-98.7) fL MCH 29.6 (27.0-33.3) pg MCHC 32.3 (28.7-35.3) g/dL RDW 23.7 H (12.4-15.0) % Plt Count 41 L (117-477) x10(3)uL MPV 8.7 (6.7-11.0) fL Neut % (Auto) 63.5 (40.3-71.8) % Lymph % (Auto) 23.5 (15.8-45.3) % Davison % (Auto) 9.0 (5.5-15.2) % Eos % (Auto) 3.7 (0.1-6.8) % Baso % (Auto) 0.3 (0.3-3.8) % Neut # (Auto) 2.9 (1.7-6.9) x10-3/uL Lymph # (Auto) 1.1 (0.5-4.5) x10-3/uL Davison # (Auto) 0.4 (0.0-1.2) x10-3/uL Eos # (Auto) 0.2 (0.0-0.6) x10-3/uL Baso # (Auto) 0.0 (0.0-0.3) x10-3/uL Sodium 134 L (135-145) mmol/L Potassium 4.1 (3.5-5.3) mmol/L Chloride 96 L (100-110) mmol/L Carbon Dioxide 28 (21-32) mmol/L BUN 22 H (7-18) mg/dL Creatinine 1.1 (0.70-1.30) mg/dL Est Cr Clr Drug Dosing 90.00 mL/min Estimated GFR (MDRD) > 60 (>60) BUN/Creatinine Ratio 20.0 (9-20) Glucose 110 (80-116) mg/dL Calcium 7.9 L (8.6-10.2) mg/dL Phosphorus 2.7 (2.6-4.6) mg/dL Total Bilirubin 0.6 (0.1-1.3) mg/dL AST 78 H D (5-25) IU/L ALT 48 H (12-36) U/L Alkaline Phosphatase 98 (56-112) IU/L Ammonia 57 (40-200) ug/dL Total Protein 6.5 (6.0-8.0) g/dL Albumin 2.9 L (3.2-4.6) g/dL Globulin 3.6 g/dL Albumin/Globulin Ratio 0.8 Amylase 67 (25-115) U/L Lipase (73-393) U/L Vitamin B12 (193-986) pg/mL 04/16/21 04/16/21 Range/Units 06:20 06:20 WBC (3.2-10.1) x10-3/uL RBC (3.90-5.90) x10(6)uL Hgb (12.9-17.7) g/dL Hct (38.3-50.1) % MCV (80.8-98.7) fL MCH (27.0-33.3) pg MCHC (28.7-35.3) g/dL RDW (12.4-15.0) % Plt Count (117-477) x10(3)uL MPV (6.7-11.0) fL Neut % (Auto) (40.3-71.8) % Lymph % (Auto) (15.8-45.3) % Davison % (Auto) (5.5-15.2) % Eos % (Auto) (0.1-6.8) % Baso % (Auto) (0.3-3.8) % Neut # (Auto) (1.7-6.9) x10-3/uL Lymph # (Auto) (0.5-4.5) x10-3/uL Davison # (Auto) (0.0-1.2) x10-3/uL Eos # (Auto) (0.0-0.6) x10-3/uL Baso # (Auto) (0.0-0.3) x10-3/uL Sodium (135-145) mmol/L Potassium (3.5-5.3) mmol/L Chloride (100-110) mmol/L Carbon Dioxide (21-32) mmol/L BUN (7-18) mg/dL Creatinine (0.70-1.30) mg/dL Est Cr Clr Drug Dosing mL/min Estimated GFR (MDRD) (>60) BUN/Creatinine Ratio (9-20) Glucose (80-116) mg/dL Calcium (8.6-10.2) mg/dL Phosphorus (2.6-4.6) mg/dL Total Bilirubin (0.1-1.3) mg/dL AST (5-25) IU/L ALT (12-36) U/L Alkaline Phosphatase (56-112) IU/L Ammonia (40-200) ug/dL Total Protein (6.0-8.0) g/dL Albumin (3.2-4.6) g/dL Globulin g/dL Albumin/Globulin Ratio Amylase (25-115) U/L Lipase 1190 H (73-393) U/L Vitamin B12 1179 H (193-986) pg/mL Result Diagrams: 10/05/20 06:20 10/05/20 06:20 Sepsis Event Note - Evaluation Sepsis Screening Result: No Definite Risk - Focused Exam Vital Signs: Vital Signs Temp Pulse Pulse Resp BP BP Pulse Ox 10/05/20 11:28 97 F 66 20 117/68 96 10/05/20 11:00 10/05/20 08:55 124/75 10/05/20 08:54 97 124/75 10/05/20 08:00 97.2 F 67 20 124/75 97 10/05/20 05:38 66 20 145/78 H 98 Pulse Ox 10/05/20 11:28 10/05/20 11:00 96 10/05/20 08:55 10/05/20 08:54 10/05/20 08:00 10/05/20 05:38 - Problem List & Annotations (1) Alcohol intoxication SNOMED Code(s): 07628485 Code(s): F10.929 - ALCOHOL USE, UNSPECIFIED WITH INTOXICATION, UNSPECIFIED Status: Acute Current Visit: Yes (2) Alcohol withdrawal syndrome SNOMED Code(s): 183684839 Code(s): F10.239 - ALCOHOL DEPENDENCE WITH WITHDRAWAL, UNSPECIFIED Status: Acute Current Visit: No Qualifiers: Complication of substance-induced condition: with unspecified complication Qualified Code(s): F10.239 - Alcohol dependence with withdrawal, unspecified (3) Peripheral neuropathy SNOMED Code(s): 282750661 Code(s): G62.9 - POLYNEUROPATHY, UNSPECIFIED Status: Acute Current Visit: Yes Qualifiers: Peripheral neuropathy type: polyneuropathy, alcohol-induced Qualified Code(s): G62.1 - Alcoholic polyneuropathy (4) Weakness SNOMED Code(s): 85144578 Code(s): R53.1 - WEAKNESS Status: Acute Current Visit: Yes (5) Hypomagnesemia SNOMED Code(s): 131170909 Code(s): E83.42 - HYPOMAGNESEMIA Status: Chronic Current Visit: Yes (6) Hypophosphatemia SNOMED Code(s): 2162516 Code(s): E83.39 - OTHER DISORDERS OF PHOSPHORUS METABOLISM Status: Chronic Current Visit: Yes (7) Elevated amylase and lipase SNOMED Code(s): 873417507, 963229000 Code(s): R74.8 - ABNORMAL LEVELS OF OTHER SERUM ENZYMES Status: Acute Current Visit: Yes Annotation/Comment:: lipase & amylase have come down, lipase 1190, amylase 67 today. No abodminal pain or symptoms of pancreatitis. will continue to monitor. (8) Hypothyroidism SNOMED Code(s): 27089882 Code(s): E03.9 - HYPOTHYROIDISM, UNSPECIFIED Status: Chronic Current Visit: Yes Qualifiers: Hypothyroidism type: unspecified Qualified Code(s): E03.9 - Hypothyroidism, unspecified (9) MDD (major depressive disorder) SNOMED Code(s): 228322435 Code(s): F32.9 - MAJOR DEPRESSIVE DISORDER, SINGLE EPISODE, UNSPECIFIED Status: Chronic Current Visit: Yes Qualifiers: Major depression recurrence: recurrent Active/Remission status: currently active Psychotic features: without psychotic features (10) Tobacco abuse SNOMED Code(s): 693328337 Code(s): Z72.0 - TOBACCO USE Status: Chronic Current Visit: Yes (11) Chronic anemia SNOMED Code(s): 251597032 Code(s): D64.9 - ANEMIA, UNSPECIFIED Status: Chronic Current Visit: No (12) OSCAR (acute kidney injury) SNOMED Code(s): 18551709, 13737875 Code(s): N17.9 - ACUTE KIDNEY FAILURE, UNSPECIFIED Status: Resolved Current Visit: Yes - Problem List Review Problem List Initiated/Reviewed/Updated: Yes - My Orders Last 24 Hours: My Active Orders 10/05/20 08:55 FOLATE (FOLIC ACID), SERUM Routine 10/05/20 10:48 Calcium Carbonate [Tums] 500 mg PO Q2H PRN 10/05/20 21:00 Ferrous Gluconate [Ferrous Gluconate] 324 mg PO BID 10/06/20 06:00 CBC WITH AUTO DIFF [HEME] Routine COMPREHENSIVE METABOLIC PN,CMP [CHEM] Routine MAGNESIUM [CHEM] Routine 10/06/20 09:00 Thiamine [Vitamin B-1] 100 mg PO DAILY - Plan Plan:: 1. Alcohol withdrawal: continue CIWA protocol, switch to oral Lorazepam & thiamine. B12 is elevated. Folate pending. Phosphorus has corrected, recheck magnesium tomorrow. AST/ALT improving. Repeat CMP, lipase tomorrow. 2. AKD: resolved: Creatinine improved to 1.1 from 1.5 on admission. Continue to encourage water intake. 3. 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 B12 is elevated, folate pending. Potassium and phosphorus normal today. 4. Hypothyroidism: TSH was 43 on admission, Levothyroxine 275 mcg daily. 5. Weakness: PT/OT continue. 6. Discharge planning: patient would like to go home with services. 7. Adjust treatments as necessary.
[2020-10-05] MEDS ORDERED: Codeine/guaiFENesin 10-100 MG/5 ML Syrup 5 ML Cup PO PRN (17:00)
[2020-10-05] MEDS: Ferrous Sulfate 325 MG Tab PO SCH (20:01)
[2020-10-05] MEDS: Sodium Chloride 0.9% 10 ML Syringe FLUSH PRN (20:04)
[2020-10-06] MEDS: Albuterol/Ipratropium 3.0-0.5 MG/3 ML Neb Soln NEB SCH ×4 (04:13→22:35)
[2020-10-06] MEDS: Levothyroxine 75 MCG Tab PO SCH (06:31)
[2020-10-06] MEDS: Ferrous Sulfate 325 MG Tab PO SCH ×2 (08:22→20:53)
[2020-10-06] MEDS: Multivitamin, Childrens Tab.Chew PO SCH (08:22)
[2020-10-06] MEDS: Metoprolol Tartrate 100 MG Tab PO SCH ×2 (08:23→20:55)
[2020-10-06] MEDS: Magnesium Oxide 400 MG Tab PO SCH ×3 (08:23→20:54)
[2020-10-06] MEDS: amLODIPine 5 MG Tab PO SCH (08:24)
[2020-10-06] MEDS: Thiamine 100 MG Tab PO SCH (08:24)
[2020-10-06] MEDS: Sertraline 50 MG Tab PO SCH (08:25)
[2020-10-06] MEDS: Potassium Phosphate,Mb-Db/Sodium Phosphate,Mb-Db Packet PO SCH ×3 (08:26→20:54)
--- NOTE | 2020-10-06 14:17 | PCM.PN ---
- General Info Date of Service: 10/06/20 Subjective Update: Anaya states he has not had any further hallucinations. Tremors are improved. His strength has improved, walked around nurse station with assistance today. Appeti te improved with changing to regular diet. Denies any abdominal pain, lipase bumped up slightly today without symptoms. No nausea or diarrhea. - Patient Data Vitals - Most Recent: Last Vital Signs Temp 98.7 F 10/06/20 11:01 Pulse 67 10/06/20 11:01 Resp 20 10/06/20 11:01 BP 118/74 10/06/20 11:01 Pulse Ox 96 10/06/20 11:01 Weight - Most Recent: 299 lb I&O - Last 24 Hours: Intake & Output 10/05/20 10/06/20 10/06/20 22:59 06:59 14:59 Intake Total 0 0 Balance 0 0 Lab Results Last 24 Hours: Laboratory Results - last 24 hr 10/05/20 10/06/20 10/06/20 Range/Units 08:55 06:12 06:12 WBC 3.5 (3.2-10.1) x10-3/uL RBC 3.30 L (3.90-5.90) x10(6)uL Hgb 9.8 L (12.9-17.7) g/dL Hct 30.5 L (38.3-50.1) % MCV 92.4 (80.8-98.7) fL MCH 29.6 (27.0-33.3) pg MCHC 32.1 (28.7-35.3) g/dL RDW 23.6 H (12.4-15.0) % Plt Count 59 L (117-477) x10(3)uL MPV 8.2 (6.7-11.0) fL Neut % (Auto) 51.9 (40.3-71.8) % Lymph % (Auto) 30.4 (15.8-45.3) % [place] % (Auto) 12.6 (5.5-15.2) % Eos % (Auto) 4.4 (0.1-6.8) % Baso % (Auto) 0.7 (0.3-3.8) % Neut # (Auto) 1.8 (1.7-6.9) x10-3/uL Lymph # (Auto) 1.1 (0.5-4.5) x10-3/uL [place] # (Auto) 0.4 (0.0-1.2) x10-3/uL Eos # (Auto) 0.2 (0.0-0.6) x10-3/uL Baso # (Auto) 0.0 (0.0-0.3) x10-3/uL Sodium 135 (135-145) mmol/L Potassium 4.0 (3.5-5.3) mmol/L Chloride 97 L (100-110) mmol/L Carbon Dioxide 27 (21-32) mmol/L BUN 18 (7-18) mg/dL Creatinine 1.1 (0.70-1.30) mg/dL Est Cr Clr Drug Dosing 90.00 mL/min Estimated GFR (MDRD) > 60 (>60) BUN/Creatinine Ratio 16.4 (9-20) Glucose 114 (80-116) mg/dL Calcium 8.0 L (8.6-10.2) mg/dL Magnesium 1.4 L (1.8-2.5) mg/dL Total Bilirubin 0.5 (0.1-1.3) mg/dL AST 44 H D (5-25) IU/L ALT 39 H D (12-36) U/L Alkaline Phosphatase 93 (56-112) IU/L Total Protein 6.4 (6.0-8.0) g/dL Albumin 2.8 L (3.2-4.6) g/dL Globulin 3.6 g/dL Albumin/Globulin Ratio 0.8 Lipase (73-393) U/L Folate 6.1 (>3.0) ng/mL 10/06/20 Range/Units 06:12 WBC (3.2-10.1) x10-3/uL RBC (3.90-5.90) x10(6)uL Hgb (12.9-17.7) g/dL Hct (38.3-50.1) % MCV (80.8-98.7) fL MCH (27.0-33.3) pg MCHC (28.7-35.3) g/dL RDW (12.4-15.0) % Plt Count (117-477) x10(3)uL MPV (6.7-11.0) fL Neut % (Auto) (40.3-71.8) % Lymph % (Auto) (15.8-45.3) % [place] % (Auto) (5.5-15.2) % Eos % (Auto) (0.1-6.8) % Baso % (Auto) (0.3-3.8) % Neut # (Auto) (1.7-6.9) x10-3/uL Lymph # (Auto) (0.5-4.5) x10-3/uL [place] # (Auto) (0.0-1.2) x10-3/uL Eos # (Auto) (0.0-0.6) x10-3/uL Baso # (Auto) (0.0-0.3) x10-3/uL Sodium (135-145) mmol/L Potassium (3.5-5.3) mmol/L Chloride (100-110) mmol/L Carbon Dioxide (21-32) mmol/L BUN (7-18) mg/dL Creatinine (0.70-1.30) mg/dL Est Cr Clr Drug Dosing mL/min Estimated GFR (MDRD) (>60) BUN/Creatinine Ratio (9-20) Glucose (80-116) mg/dL Calcium (8.6-10.2) mg/dL Magnesium (1.8-2.5) mg/dL Total Bilirubin (0.1-1.3) mg/dL AST (5-25) IU/L ALT (12-36) U/L Alkaline Phosphatase (56-112) IU/L Total Protein (6.0-8.0) g/dL Albumin (3.2-4.6) g/dL Globulin g/dL Albumin/Globulin Ratio Lipase 1464 H (73-393) U/L Folate (>3.0) ng/mL Med Orders - Current: Current Medications Acetaminophen (Acetaminophen 325 Mg Tab) 650 mg PO Q4H PRN PRN Reason: Pain (Mild 1-3)/fever Last Admin: 10/02/20 20:08 Dose: 650 mg Documented by: Albuterol/Ipratropium (Albuterol/Ipratropium 3.0-0.5 Mg/3 Ml Neb Soln) 3 ml NEB Q6H [facility] Last Admin: 10/06/20 10:56 Dose: 3 ml Documented by: Amlodipine Besylate (Amlodipine 5 Mg Tab) 5 mg PO DAILY [facility] Last Admin: 10/06/20 08:24 Dose: 5 mg Documented by: Calcium Carbonate/Glycine (Calcium Carbonate 500 Mg Tab.Chew) 500 mg PO Q2H PRN PRN Reason: Indigestion Last Admin: 10/05/20 14:14 Dose: 500 mg Documented by: Ferrous Sulfate (Ferrous Sulfate 325 Mg Tab) 325 mg PO BID [facility] Last Admin: 10/06/20 08:22 Dose: 325 mg Documented by: Guaifenesin/Codeine Phosphate (Codeine/Guaifenesin 10-100 Mg/5 Ml Syrup 5 Ml Cup) 10 ml PO Q6H PRN PRN Reason: COUGH Last Admin: 10/05/20 22:48 Dose: 10 ml Documented by: Levothyroxine Sodium (Levothyroxine 200 Mcg Tab) 200 mcg PO ACBREAKFAST [facility] Last Admin: 10/06/20 06:31 Dose: 200 mcg Documented by: Levothyroxine Sodium (Levothyroxine 75 Mcg Tab) 75 mcg PO ACBREAKFAST [facility] Last Admin: 10/06/20 06:31 Dose: 75 mcg Documented by: Lorazepam (Lorazepam 1 Mg Tab) 0 mg PO ASDIRECTED [facility]; Protocol Last Admin: 10/03/20 21:09 Dose: 1 mg Documented by: Magnesium Oxide (Magnesium Oxide 400 Mg Tab) 400 mg PO TID [facility] Metoprolol Tartrate (Metoprolol Tartrate 100 Mg Tab) 100 mg PO BID [facility] Last Admin: 10/06/20 08:23 Dose: 100 mg Documented by: Multivitamins/Minerals/Vitamin C (Multivitamin, Childrens Tab.Chew) 1 tab PO DAILY [facility] Last Admin: 10/06/20 08:22 Dose: 1 tab Documented by: Potassium Phos/Sodium Phos (Potassium Phosphate,Mb-Db/Sodium Phosphate,Mb-Db Packet) 1 each PO TID [facility] Last Admin: 10/06/20 08:26 Dose: 1 package Documented by: Senna/Docusate Sodium (Docusate Sodium/Sennosides 50-8.6 Mg Tab) 1 tab PO BID PRN PRN Reason: Constipation Sertraline HCl (Sertraline 50 Mg Tab) 150 mg PO DAILY [facility] Last Admin: 10/06/20 08:25 Dose: 150 mg Documented by: Sodium Chloride (Sodium Chloride 0.9% 10 Ml Syringe) 10 ml FLUSH ASDIRECTED PRN PRN Reason: Keep Vein Open Last Admin: 10/05/20 20:04 Dose: 10 ml Documented by: Thiamine HCl (Thiamine 100 Mg Tab) 100 mg PO DAILY [facility] Last Admin: 10/06/20 08:24 Dose: 100 mg Documented by: Discontinued Medications Diazepam (Diazepam 5 Mg Tab) 10 mg PO ONETIME ONE Stop: 10/02/20 09:16 Last Admin: 10/02/20 10:11 Dose: 10 mg Documented by: Enoxaparin Sodium (Enoxaparin 40 Mg/0.4 Ml Syringe) 40 mg SUBCUT Q24H [facility] Last Admin: 10/02/20 16:49 Dose: Not Given Documented by: Guaifenesin/Codeine Phosphate (Codeine/Guaifenesin 10-100 Mg/5 Ml Syrup 5 Ml Cup) 10 ml PO Q6H [facility] Last Admin: 10/05/20 11:05 Dose: 10 ml Documented by: Dextrose/Sodium Chloride (Dextrose 5%-Normal Saline) 1,000 mls @ 999 mls/hr IV ASDIRECTED [facility] Last Admin: 10/02/20 08:38 Dose: 999 mls/hr Documented by: Thiamine HCl 100 mg/ Sodium (Chloride) 101 mls @ 202 mls/hr IV NOW STA Stop: 10/02/20 08:23 Last Admin: 10/02/20 08:44 Dose: 202 mls/hr Documented by: Sodium Chloride (Normal Saline) 1,000 mls @ 125 mls/hr IV ASDIRECTED [facility] Last Admin: 10/03/20 01:17 Dose: 125 mls/hr Documented by: Sodium Chloride (Normal Saline) 1,000 mls @ 125 mls/hr IV ASDIRECTED [facility] Last Admin: 10/03/20 17:53 Dose: 125 mls/hr Documented by: Thiamine HCl 100 mg/ Sodium (Chloride) 101 mls @ 202 mls/hr IV DAILY [facility] Last Admin: 10/05/20 08:58 Dose: 202 mls/hr Documented by: Levothyroxine Sodium (Levothyroxine 75 Mcg Tab) 75 mcg PO ONETIME ONE Stop: 10/02/20 18:19 Last Admin: 10/02/20 18:47 Dose: 75 mcg Documented by: Levothyroxine Sodium (Levothyroxine 200 Mcg Tab) 200 mcg PO ONETIME ONE Stop: 10/02/20 18:20 Last Admin: 10/02/20 18:46 Dose: 200 mcg Documented by: Lorazepam (Lorazepam 2 Mg/Ml Sdv) 0 mg IVPUSH Q4H PRN; Protocol PRN Reason: ALCOHOL WITHDRAWL Lorazepam (Lorazepam 2 Mg/Ml Sdv) 0 mg IVPUSH ASDIRECTED PRN; Protocol PRN Reason: ALCOHOL WITHDRAWL Magnesium Oxide (Magnesium Oxide 400 Mg Tab) 400 mg PO BID [facility] Last Admin: 10/06/20 08:23 Dose: 400 mg Documented by: Multivitamins/Minerals/Vitamin C (Multivitamin Tab) 1 tab PO NOW STA Stop: 10/02/20 08:23 Last Admin: 10/02/20 08:46 Dose: 1 tab Documented by: Ondansetron HCl (Ondansetron 4 Mg/2 Ml Sdv) 4 mg IV Q4H PRN PRN Reason: Nausea/Vomiting - Exam General: Alert, Oriented, Cooperative, No Acute Distress Lungs: Clear to Auscultation, Normal Respiratory Effort Cardiovascular: Regular Rate, Regular Rhythm GI/Abdominal Exam: Normal Bowel Sounds, Soft, Non-Tender, No Distention Extremities: Pedal Edema (trace BLE) Peripheral Pulses: 2+: Radial (L), Radial (R) Neurological: Normal Speech, Other (No tremor. ) - Patient Data Lab Results Last 24 hrs: Laboratory Results - last 24 hr 10/05/20 10/06/20 10/06/20 Range/Units 08:55 06:12 06:12 WBC 3.5 (3.2-10.1) x10-3/uL RBC 3.30 L (3.90-5.90) x10(6)uL Hgb 9.8 L (12.9-17.7) g/dL Hct 30.5 L (38.3-50.1) % MCV 92.4 (80.8-98.7) fL MCH 29.6 (27.0-33.3) pg MCHC 32.1 (28.7-35.3) g/dL RDW 23.6 H (12.4-15.0) % Plt Count 59 L (117-477) x10(3)uL MPV 8.2 (6.7-11.0) fL Neut % (Auto) 51.9 (40.3-71.8) % Lymph % (Auto) 30.4 (15.8-45.3) % [place] % (Auto) 12.6 (5.5-15.2) % Eos % (Auto) 4.4 (0.1-6.8) % Baso % (Auto) 0.7 (0.3-3.8) % Neut # (Auto) 1.8 (1.7-6.9) x10-3/uL Lymph # (Auto) 1.1 (0.5-4.5) x10-3/uL [place] # (Auto) 0.4 (0.0-1.2) x10-3/uL Eos # (Auto) 0.2 (0.0-0.6) x10-3/uL Baso # (Auto) 0.0 (0.0-0.3) x10-3/uL Sodium 135 (135-145) mmol/L Potassium 4.0 (3.5-5.3) mmol/L Chloride 97 L (100-110) mmol/L Carbon Dioxide 27 (21-32) mmol/L BUN 18 (7-18) mg/dL Creatinine 1.1 (0.70-1.30) mg/dL Est Cr Clr Drug Dosing 90.00 mL/min Estimated GFR (MDRD) > 60 (>60) BUN/Creatinine Ratio 16.4 (9-20) Glucose 114 (80-116) mg/dL Calcium 8.0 L (8.6-10.2) mg/dL Magnesium 1.4 L (1.8-2.5) mg/dL Total Bilirubin 0.5 (0.1-1.3) mg/dL AST 44 H D (5-25) IU/L ALT 39 H D (12-36) U/L Alkaline Phosphatase 93 (56-112) IU/L Total Protein 6.4 (6.0-8.0) g/dL Albumin 2.8 L (3.2-4.6) g/dL Globulin 3.6 g/dL Albumin/Globulin Ratio 0.8 Lipase (73-393) U/L Folate 6.1 (>3.0) ng/mL 10/06/20 Range/Units 06:12 WBC (3.2-10.1) x10-3/uL RBC (3.90-5.90) x10(6)uL Hgb (12.9-17.7) g/dL Hct (38.3-50.1) % MCV (80.8-98.7) fL MCH (27.0-33.3) pg MCHC (28.7-35.3) g/dL RDW (12.4-15.0) % Plt Count (117-477) x10(3)uL MPV (6.7-11.0) fL Neut % (Auto) (40.3-71.8) % Lymph % (Auto) (15.8-45.3) % [place] % (Auto) (5.5-15.2) % Eos % (Auto) (0.1-6.8) % Baso % (Auto) (0.3-3.8) % Neut # (Auto) (1.7-6.9) x10-3/uL Lymph # (Auto) (0.5-4.5) x10-3/uL [place] # (Auto) (0.0-1.2) x10-3/uL Eos # (Auto) (0.0-0.6) x10-3/uL Baso # (Auto) (0.0-0.3) x10-3/uL Sodium (135-145) mmol/L Potassium (3.5-5.3) mmol/L Chloride (100-110) mmol/L Carbon Dioxide (21-32) mmol/L BUN (7-18) mg/dL Creatinine (0.70-1.30) mg/dL Est Cr Clr Drug Dosing mL/min Estimated GFR (MDRD) (>60) BUN/Creatinine Ratio (9-20) Glucose (80-116) mg/dL Calcium (8.6-10.2) mg/dL Magnesium (1.8-2.5) mg/dL Total Bilirubin (0.1-1.3) mg/dL AST (5-25) IU/L ALT (12-36) U/L Alkaline Phosphatase (56-112) IU/L Total Protein (6.0-8.0) g/dL Albumin (3.2-4.6) g/dL Globulin g/dL Albumin/Globulin Ratio Lipase 1464 H (73-393) U/L Folate (>3.0) ng/mL Result Diagrams: 10/06/20 06:12 10/06/20 06:12 Sepsis Event Note - Evaluation Sepsis Screening Result: No Definite Risk - Focused Exam Vital Signs: Vital Signs Temp Pulse Pulse Resp BP BP Pulse Ox 10/06/20 11:01 98.7 F 67 20 118/74 96 10/06/20 08:24 138/75 10/06/20 08:23 67 138/75 10/06/20 08:16 98.8 F 67 20 138/75 96 10/06/20 04:14 64 10/06/20 04:00 98.6 F 64 16 149/77 H 98 Pulse Ox 10/06/20 11:01 10/06/20 08:24 10/06/20 08:23 10/06/20 08:16 10/06/20 04:14 98 10/06/20 04:00 - Problem List & Annotations (1) Alcohol withdrawal syndrome SNOMED Code(s): 695623909 Code(s): F10.239 - ALCOHOL DEPENDENCE WITH WITHDRAWAL, UNSPECIFIED Status: Acute Current Visit: No Qualifiers: Complication of substance-induced condition: with unspecified complication Qualified Code(s): F10.239 - Alcohol dependence with withdrawal, unspecified Annotation/Comment:: Improving. (2) Peripheral neuropathy SNOMED Code(s): 649668752 Code(s): G62.9 - POLYNEUROPATHY, UNSPECIFIED Status: Chronic Current Visit: Yes Qualifiers: Peripheral neuropathy type: polyneuropathy, alcohol-induced Qualified Code(s): G62.1 - Alcoholic polyneuropathy (3) Weakness SNOMED Code(s): 73078183 Code(s): R53.1 - WEAKNESS Status: Acute Current Visit: Yes Annotation/Comment:: Improving. (4) Hypomagnesemia SNOMED Code(s): 694446281 Code(s): E83.42 - HYPOMAGNESEMIA Status: Chronic Current Visit: Yes Annotation/Comment:: Magnesium 1.4 today slowly improving. Increase from bid to tid. Recheck on Thursday. (5) Hypophosphatemia SNOMED Code(s): 5959148 Code(s): E83.39 - OTHER DISORDERS OF PHOSPHORUS METABOLISM Status: Resolved Current Visit: Yes (6) Elevated amylase and lipase SNOMED Code(s): 625499552, 057509050 Code(s): R74.8 - ABNORMAL LEVELS OF OTHER SERUM ENZYMES Status: Acute Current Visit: Yes Annotation/Comment:: Lipase went up from 1190 to 1464 today. No abodminal pain or symptoms of pancreatitis. Mostly chronic elevation due to his alcoholism. Will recheck if he develops abdominal symptoms of pancreatitis. (7) Hypothyroidism SNOMED Code(s): 81437942 Code(s): E03.9 - HYPOTHYROIDISM, UNSPECIFIED Status: Chronic Current Visit: Yes Qualifiers: Hypothyroidism type: unspecified Qualified Code(s): E03.9 - Hypothyroidism, unspecified (8) MDD (major depressive disorder) SNOMED Code(s): 234802606 Code(s): F32.9 - MAJOR DEPRESSIVE DISORDER, SINGLE EPISODE, UNSPECIFIED Status: Chronic Current Visit: Yes Qualifiers: Major depression recurrence: recurrent Active/Remission status: currently active Psychotic features: without psychotic features (9) Tobacco abuse SNOMED Code(s): 401779094 Code(s): Z72.0 - TOBACCO USE Status: Chronic Current Visit: Yes (10) Chronic anemia SNOMED Code(s): 385974461 Code(s): D64.9 - ANEMIA, UNSPECIFIED Status: Chronic Current Visit: No (11) OSCAR (acute kidney injury) SNOMED Code(s): 66930938, 17391097 Code(s): N17.9 - ACUTE KIDNEY FAILURE, UNSPECIFIED Status: Resolved Current Visit: Yes (12) Alcohol intoxication SNOMED Code(s): 88912491 Code(s): F10.929 - ALCOHOL USE, UNSPECIFIED WITH INTOXICATION, UNSPECIFIED Status: Resolved Current Visit: Yes - Problem List Review Problem List Initiated/Reviewed/Updated: Yes - My Orders Last 24 Hours: My Active Orders 10/05/20 21:00 Ferrous Sulfate 325 mg PO BID 10/06/20 09:00 Thiamine [Vitamin B-1] 100 mg PO DAILY 10/06/20 09:18 OCCULT BLOOD SCREEN [OP] Routine 10/06/20 Lunch Regular Diet [DIET] 10/06/20 14:00 Magnesium Oxide 400 mg PO TID - Plan Plan:: 1. Alcohol withdrawal: continue CIWA protocol, Folate 6.1, normal. Magnesium 1.4, repeat on Thursday. AST/ALT improving. 2. 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 Magnesium still correcting, increased to tid. 3. Hypothyroidism: TSH was 43 on admission, Levothyroxine 275 mcg daily. 4. Weakness: PT/OT continue. 5. Discharge planning: patient would like to go home with services. 6. Adjust treatments as necessary.
[2020-10-07] MEDS: Albuterol/Ipratropium 3.0-0.5 MG/3 ML Neb Soln NEB SCH ×4 (04:52→22:59)
[2020-10-07] MEDS: Levothyroxine 75 MCG Tab PO SCH ×2 (05:27→06:44)
[2020-10-07] MEDS: Metoprolol Tartrate 100 MG Tab PO SCH ×2 (08:27→22:04)
[2020-10-07] MEDS: Magnesium Oxide 400 MG Tab PO SCH ×3 (08:27→22:09)
[2020-10-07] MEDS: Potassium Phosphate,Mb-Db/Sodium Phosphate,Mb-Db Packet PO SCH ×3 (08:28→22:05)
[2020-10-07] MEDS: Thiamine 100 MG Tab PO SCH (08:28)
[2020-10-07] MEDS: Ferrous Sulfate 325 MG Tab PO SCH ×2 (08:28→22:05)
[2020-10-07] MEDS: amLODIPine 5 MG Tab PO SCH (08:28)
[2020-10-07] MEDS: Multivitamin, Childrens Tab.Chew PO SCH (08:28)
[2020-10-07] MEDS: Sertraline 50 MG Tab PO SCH (08:29)
--- NOTE | 2020-10-07 09:56 | PCM.PN ---
- General Info Date of Service: 10/07/20 Subjective Update: Nursing reported that he is eating better since changing his diet, he states he still feels weak. Ambulated around nursing station yesterday a few times. Sleeping this morning, wakes easily. Denies any pain, shortness of breath. Some swelling in his legs. - Patient Data Vitals - Most Recent: Last Vital Signs Temp 98.9 F 10/07/20 00:00 Pulse 66 10/07/20 08:27 Resp 18 10/07/20 00:00 BP 139/75 10/07/20 08:28 Pulse Ox 99 10/07/20 00:00 Weight - Most Recent: 299 lb 5 oz Med Orders - Current: Current Medications Acetaminophen (Acetaminophen 325 Mg Tab) 650 mg PO Q4H PRN PRN Reason: Pain (Mild 1-3)/fever Last Admin: 10/02/20 20:08 Dose: 650 mg Documented by: Albuterol/Ipratropium (Albuterol/Ipratropium 3.0-0.5 Mg/3 Ml Neb Soln) 3 ml NEB Q6H [facility] Last Admin: 10/07/20 04:52 Dose: 3 ml Documented by: Amlodipine Besylate (Amlodipine 5 Mg Tab) 5 mg PO DAILY [facility] Last Admin: 10/07/20 08:28 Dose: 5 mg Documented by: Calcium Carbonate/Glycine (Calcium Carbonate 500 Mg Tab.Chew) 500 mg PO Q2H PRN PRN Reason: Indigestion Last Admin: 10/05/20 14:14 Dose: 500 mg Documented by: Ferrous Sulfate (Ferrous Sulfate 325 Mg Tab) 325 mg PO BID [facility] Last Admin: 10/07/20 08:28 Dose: 325 mg Documented by: Guaifenesin/Codeine Phosphate (Codeine/Guaifenesin 10-100 Mg/5 Ml Syrup 5 Ml Cup) 10 ml PO Q6H PRN PRN Reason: COUGH Last Admin: 10/05/20 22:48 Dose: 10 ml Documented by: Levothyroxine Sodium (Levothyroxine 200 Mcg Tab) 200 mcg PO ACBREAKFAST [facility] Last Admin: 10/07/20 06:43 Dose: Not Given Documented by: Levothyroxine Sodium (Levothyroxine 75 Mcg Tab) 75 mcg PO ACBREAKFAST [facility] Last Admin: 10/07/20 06:44 Dose: Not Given Documented by: Lorazepam (Lorazepam 1 Mg Tab) 0 mg PO ASDIRECTED [facility]; Protocol Last Admin: 10/03/20 21:09 Dose: 1 mg Documented by: Magnesium Oxide (Magnesium Oxide 400 Mg Tab) 400 mg PO TID [facility] Last Admin: 10/07/20 08:27 Dose: 400 mg Documented by: Metoprolol Tartrate (Metoprolol Tartrate 100 Mg Tab) 100 mg PO BID [facility] Last Admin: 10/07/20 08:27 Dose: 100 mg Documented by: Multivitamins/Minerals/Vitamin C (Multivitamin, Childrens Tab.Chew) 1 tab PO DAILY [facility] Last Admin: 10/07/20 08:28 Dose: 1 tab Documented by: Potassium Phos/Sodium Phos (Potassium Phosphate,Mb-Db/Sodium Phosphate,Mb-Db Packet) 1 each PO TID [facility] Last Admin: 10/07/20 08:28 Dose: 1 package Documented by: Senna/Docusate Sodium (Docusate Sodium/Sennosides 50-8.6 Mg Tab) 1 tab PO BID PRN PRN Reason: Constipation Sertraline HCl (Sertraline 50 Mg Tab) 150 mg PO DAILY [facility] Last Admin: 10/07/20 08:29 Dose: 150 mg Documented by: Sodium Chloride (Sodium Chloride 0.9% 10 Ml Syringe) 10 ml FLUSH ASDIRECTED PRN PRN Reason: Keep Vein Open Last Admin: 10/05/20 20:04 Dose: 10 ml Documented by: Thiamine HCl (Thiamine 100 Mg Tab) 100 mg PO DAILY [facility] Last Admin: 10/07/20 08:28 Dose: 100 mg Documented by: Discontinued Medications Diazepam (Diazepam 5 Mg Tab) 10 mg PO ONETIME ONE Stop: 10/02/20 09:16 Last Admin: 10/02/20 10:11 Dose: 10 mg Documented by: Enoxaparin Sodium (Enoxaparin 40 Mg/0.4 Ml Syringe) 40 mg SUBCUT Q24H [facility] Last Admin: 10/02/20 16:49 Dose: Not Given Documented by: Guaifenesin/Codeine Phosphate (Codeine/Guaifenesin 10-100 Mg/5 Ml Syrup 5 Ml Cup) 10 ml PO Q6H [facility] Last Admin: 10/05/20 11:05 Dose: 10 ml Documented by: Dextrose/Sodium Chloride (Dextrose 5%-Normal Saline) 1,000 mls @ 999 mls/hr IV ASDIRECTED [facility] Last Admin: 10/02/20 08:38 Dose: 999 mls/hr Documented by: Thiamine HCl 100 mg/ Sodium (Chloride) 101 mls @ 202 mls/hr IV NOW STA Stop: 10/02/20 08:23 Last Admin: 10/02/20 08:44 Dose: 202 mls/hr Documented by: Sodium Chloride (Normal Saline) 1,000 mls @ 125 mls/hr IV ASDIRECTED [facility] Last Admin: 10/03/20 01:17 Dose: 125 mls/hr Documented by: Sodium Chloride (Normal Saline) 1,000 mls @ 125 mls/hr IV ASDIRECTED [facility] Last Admin: 10/03/20 17:53 Dose: 125 mls/hr Documented by: Thiamine HCl 100 mg/ Sodium (Chloride) 101 mls @ 202 mls/hr IV DAILY [facility] Last Admin: 10/05/20 08:58 Dose: 202 mls/hr Documented by: Levothyroxine Sodium (Levothyroxine 75 Mcg Tab) 75 mcg PO ONETIME ONE Stop: 10/02/20 18:19 Last Admin: 10/02/20 18:47 Dose: 75 mcg Documented by: Levothyroxine Sodium (Levothyroxine 200 Mcg Tab) 200 mcg PO ONETIME ONE Stop: 10/02/20 18:20 Last Admin: 10/02/20 18:46 Dose: 200 mcg Documented by: Lorazepam (Lorazepam 2 Mg/Ml Sdv) 0 mg IVPUSH Q4H PRN; Protocol PRN Reason: ALCOHOL WITHDRAWL Lorazepam (Lorazepam 2 Mg/Ml Sdv) 0 mg IVPUSH ASDIRECTED PRN; Protocol PRN Reason: ALCOHOL WITHDRAWL Magnesium Oxide (Magnesium Oxide 400 Mg Tab) 400 mg PO BID [facility] Last Admin: 10/06/20 08:23 Dose: 400 mg Documented by: Multivitamins/Minerals/Vitamin C (Multivitamin Tab) 1 tab PO NOW STA Stop: 10/02/20 08:23 Last Admin: 10/02/20 08:46 Dose: 1 tab Documented by: Ondansetron HCl (Ondansetron 4 Mg/2 Ml Sdv) 4 mg IV Q4H PRN PRN Reason: Nausea/Vomiting - Exam General: Alert, Oriented, Cooperative, No Acute Distress Lungs: Clear to Auscultation, Normal Respiratory Effort Cardiovascular: Regular Rate, Regular Rhythm GI/Abdominal Exam: Normal Bowel Sounds, Soft, Non-Tender, No Distention Extremities: Pedal Edema (1+ pitting BLE) Peripheral Pulses: 2+: Radial (L), Radial (R) - Patient Data Result Diagrams: 10/06/20 06:12 10/06/20 06:12 Sepsis Event Note - Evaluation Sepsis Screening Result: No Definite Risk - Focused Exam Vital Signs: Vital Signs Temp Pulse Pulse Resp BP BP Pulse Ox 10/07/20 08:28 139/75 10/07/20 08:27 66 139/75 10/07/20 04:55 64 10/07/20 00:00 98.9 F 62 18 124/70 99 10/06/20 22:50 64 - Problem List & Annotations (1) Alcohol withdrawal syndrome SNOMED Code(s): 242812266 Code(s): F10.239 - ALCOHOL DEPENDENCE WITH WITHDRAWAL, UNSPECIFIED Status: Acute Current Visit: No Qualifiers: Complication of substance-induced condition: with unspecified complication Qualified Code(s): F10.239 - Alcohol dependence with withdrawal, unspecified Annotation/Comment:: Improving. 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 (4) Hypomagnesemia SNOMED Code(s): 407625584 Code(s): E83.42 - HYPOMAGNESEMIA Status: Chronic Current Visit: Yes An notation/Comment:: Magnesium slowly improving. Magnesium 400 mg tid. Recheck on Thursday. (5) Hypophosphatemia SNOMED Code(s): 3405045 Code(s): E83.39 - OTHER DISORDERS OF PHOSPHORUS METABOLISM Status: Resolved Current Visit: Yes (6) Elevated amylase and lipase SNOMED Code(s): 707117316, 458692668 Code(s): R74.8 - ABNORMAL LEVELS OF OTHER SERUM ENZYMES Status: Acute Current Visit: Yes Annotation/Comment:: No abodminal pain or symptoms of pancreatitis. Mostly chronic elevation due to his alcoholism. Will recheck if he develops abdominal symptoms of pancreatitis. (7) Hypothyroidism SNOMED Code(s): 46994088 Code(s): E03.9 - HYPOTHYROIDISM, UNSPECIFIED Status: Chronic Current Visit: Yes Qualifiers: Hypothyroidism type: unspecified Qualified Code(s): E03.9 - Hypothyroidism, unspecified (8) MDD (major depressive disorder) SNOMED Code(s): 382206077 Code(s): F32.9 - MAJOR DEPRESSIVE DISORDER, SINGLE EPISODE, UNSPECIFIED Status: Chronic Current Visit: Yes Qualifiers: Major depression recurrence: recurrent Active/Remission status: currently a ctive Psychotic features: without psychotic features (9) Tobacco abuse SNOMED Code(s): 506376077 Code(s): Z72.0 - TOBACCO USE Status: Chronic Current Visit: Yes (10) Chronic anemia SNOMED Code(s): 150700080 Code(s): D64.9 - ANEMIA, UNSPECIFIED Status: Chronic Current Visit: No (11) OSCAR (acute kidney injury) SNOMED Code(s): 79562273, 85552505 Code(s): N17.9 - ACUTE KIDNEY FAILURE, UNSPECIFIED Status: Resolved Cur rent Visit: Yes (12) Alcohol intoxication SNOMED Code(s): 58967122 Code(s): F10.929 - ALCOHOL USE, UNSPECIFIED WITH INTOXICATION, UNSPECIFIED Status: Resolved Current Visit: Yes - Problem List Review Problem List Initiated/Reviewed/Updated: Yes - My Orders Last 24 Hours: My Active Orders 10/06/20 09:00 Thiamine [Vitamin B-1] 100 mg PO DAILY 10/06/20 09:18 OCCULT BLOOD SCREEN [OP] Routine 10/06/20 Lunch Regular Diet [DIET] 10/06/20 14:00 Magnesium Oxide 400 mg PO TID 10/08/20 06:00 COMPREHENSIVE METABOLIC PN,CMP [CHEM] Routine MAGNESIUM [CHEM] Routine - Plan Plan:: 1. Alcohol withdrawal: continue CIWA protocol, Magnesium 1.4, repeat on Thursday. CMP tomorrow. 2. 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 Magnesium tid. 3. Hypothyroidism: TSH was 43 on admission, Levothyroxine 275 mcg daily. 4. Weakness: PT/OT continue. 5. Anemia: on Iron, has had 3 gram drop since admission, fecal occult ordered. 6. Discharge planning: patient would like to go home with services. 7. Adjust treatments as necessary.
[2020-10-08] MEDS: Albuterol/Ipratropium 3.0-0.5 MG/3 ML Neb Soln NEB SCH ×2 (04:52→11:43)
[2020-10-08] MEDS: Levothyroxine 75 MCG Tab PO SCH (06:34)
[2020-10-08 08:25] VITALS: BP 146/80; PULSE 66
[2020-10-08] MEDS: Thiamine 100 MG Tab PO SCH (08:45)
[2020-10-08] MEDS: amLODIPine 5 MG Tab PO SCH (08:46)
[2020-10-08] MEDS: Metoprolol Tartrate 100 MG Tab PO SCH (08:46)
[2020-10-08] MEDS: Ferrous Sulfate 325 MG Tab PO SCH (08:46)
[2020-10-08] MEDS: Multivitamin, Childrens Tab.Chew PO SCH (08:46)
[2020-10-08] MEDS: Potassium Phosphate,Mb-Db/Sodium Phosphate,Mb-Db Packet PO SCH (08:47)
[2020-10-08] MEDS: Sertraline 50 MG Tab PO SCH (08:47)
[2020-10-08] MEDS: Magnesium Oxide 400 MG Tab PO SCH (08:49)
--- NOTE | 2020-10-08 15:34 | PCM.DCSUM1 ---
Discharge Summary - Hospital Course HPI Initial Comments: Anaya is a 60 yo male who presented to the ED because of weakness for months which got worse for the past week. He also c/o peripheral numbness especially on both legs, been going on for years. There is no associated abdominal pain, nausea or vomiting. There is no fever, chills, he c/o cough which is mostly non- productive. He has a history of alcoholism and drinks half a gallon of vodka a day. Other past problems include hypothyroidism, tobacco abuse, hypokalemia, MDD and type 2 DM. He states he has been disabled since the of his son 10 yrs ago. Diagnosis: Stroke: No - Discharge Data Discharge Date: 10/08/20 Discharge Disposition: Home, Self-Care 01 Condition: Fair - Referral to Home Health Primary Care Physician: PCP Unknown - Discharge Diagnosis/Problem(s) (1) Alcohol withdrawal syndrome SNOMED Code(s): 215922639 ICD Code: F10.239 - ALCOHOL DEPENDENCE WITH WITHDRAWAL, UNSPECIFIED Status: Resolved Problem Details: Improving. 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 (4) Hypomagnesemia SNOMED Code(s): 940975153 ICD Code: E83.42 - HYPOMAGNESEMIA Status: Chronic Problem Details: Magnesium slowly improving. Magnesium 400 mg tid. Recheck in 1 week. (5) Hypophosphatemia SNOMED Code(s): 6102123 ICD Code: E83.39 - OTHER DISORDERS OF PHOSPHORUS METABOLISM Status: Resolved (6) Elevated amylase and lipase SNOMED Code(s): 555500090, 629475250 ICD Code: R74.8 - ABNORMAL LEVELS OF OTHER SERUM ENZYMES Status: Acute Problem Details: No abodminal pain or symptoms of pancreatitis. Mostly chronic elevation due to his alcoholism. Will recheck if he develops abdominal symptoms of pancreatitis. (7) Hypothyroidism SNOMED Code(s): 19828137 ICD Code: E03.9 - HYPOTHYROIDISM, UNSPECIFIED Status: Chronic Qualifiers: Hypothyroidism type: unspecified Qualified Code(s): E03.9 - Hypothyroidism, unspecified (8) MDD (major depressive disorder) SNOMED Code(s): 103000634 ICD Code: F32.9 - MAJOR DEPRESSIVE DISORDER, SINGLE EPISODE, UNSPECIFIED Status: Chronic Qualifiers: Major depression recurrence: recurrent Active/Remission status: currently active Psychotic features: without psychotic features (9) Tobacco abuse SNOMED Code(s): 611453073 ICD Code: Z72.0 - TOBACCO USE Status: Chronic (10) Chronic anemia SNOMED Code(s): 467245396 ICD Code: D64.9 - ANEMIA, UNSPECIFIED Status: Chronic (11) OSCAR (acute kidney injury) SNOMED Code(s): 23725630, 09554798 ICD Code: N17.9 - ACUTE KIDNEY FAILURE, UNSPECIFIED Status: Resolved (12) Alcohol intoxication SNOMED Code(s): 25842057 ICD Code: F10.929 - ALCOHOL USE, UNSPECIFIED WITH INTOXICATION, UNSPECIFIED Status: Resolved - Patient Summary/Data Consults: Consultations 10/02/20 11:42 PT Evaluation and Treatment [CONS] Routine Please Evaluate and Treat. PT Reason for Consult: Strengthening This query below is only for informational purposes and is not editable. 10/02/20 16:56 OT Evaluation and Treatment [CONS] Routine Please Evaluate and Treat. OT Reason for Consult: ADL's This query below is only for informational purposes and is not editable. Admission Diagnosis/Problem: Weakness Hospital Course: Admitted for IV fluids, these were discontinued on 10/03. PT/OT evaluated, he worked with OT but consistently refused to PT. Phosphorus, magnesium were low, supplements given, phosphorus correct, Magnesium up to 1.6 on discharge, magnesium 400 mg tid. Hgb dropped to 9.8, fecal occult was negative. Iron restarted. IV thiamine switched to oral. B12 was elevated, and folate was within normal range. Cough improved, cough suppressant discontinued. His alcohol level 0.27 on admission, he developed visual hallucinations and tremor, hallucination resolved by Thursday, tremors resolved on Thursday. Lipase trended down and no abdominal pain, suspect chronic pancreatitis secondary to alcoholism. LFTs also trended down and were ALT was normal and AST was 28 at discharge. OT recommended Swing bed but PT did not as he was not participating. Anaya declined assisted living or senior living due to finances. At time of discharge he was ambulating with FWW with standby assist over 400 feet, ambulating to bathroom on his own which was improvement. Home Health services were offered but he declined. - Patient Instructions Diet: Regular Diet as Tolerated, No Alcoholic Beverages Activity: As Tolerated Driving: Do Not Drive Notify Provider of: Fever, Increased Pain, Nausea and/or Vomiting Other/Special Instructions: Follow up with Dr Jesi Corona [facility] in 1 week to recheck your magnesium. - Discharge Plan *PRESCRIPTION DRUG MONITORING PROGRAM REVIEWED*: Not Applicable *COPY OF PRESCRIPTION DRUG MONITORING REPORT IN PATIENT RAINER: Not Applicable Prescriptions/Med Rec: Multivitamins [Childrens Chewable Vitamin] 1 tab PO DAILY 14 Days #14 tab.chew Magnesium Oxide 400 mg PO TID 14 Days #42 tablet Thiamine [Vitamin B-1] 100 mg PO DAILY 14 Days #14 tablet Home Medications: Home Meds Metoprolol Tartrate 100 mg PO BID 03/02/16 [History] Sertraline HCl 150 mg PO DAILY 03/02/16 [History] amLODIPine Besylate [Amlodipine Besylate] 5 mg PO DAILY 03/02/16 [History] Levothyroxine [Synthroid] 75 mcg PO ACBREAKFAST 03/10/16 [History] Levothyroxine 200 mcg PO ACBREAKFAST 05/28/16 [History] atorvaSTATin [Lipitor] 20 mg PO DAILY 10/02/20 [History] Ferrous Gluconate 324 mg PO BID 10/03/20 [History] Magnesium Oxide 400 mg PO TID 14 Days #42 tablet 10/08/20 [Rx] Multivitamins [Childrens Chewable Vitamin] 1 tab PO DAILY 14 Days #14 tab.chew 10/08/20 [Rx] Thiamine [Vitamin B-1] 100 mg PO DAILY 14 Days #14 tablet 10/08/20 [Rx] Oxygen Therapy Mode: Room Air Forms: ED Department Discharge Referrals: PCP,Unknown [Primary Care Provider] - - Discharge Summary/Plan Comment DC Time >30 min.: No - General Info Date of Service: 10/08/20 Subjective Update: More alert today, has ambulated to bathroom on his own. Walked 400 feet yesterday with nursing, did not require assistance with front wheeled walker. No abdominal pain, nausea, or vomiting. Labs improved. Declined home health services. - Patient Data Vitals - Most Recent: Last Vital Signs Temp 98.3 F 10/08/20 08:00 Pulse 66 10/08/20 08:46 Resp 22 H 10/08/20 08:00 BP 146/80 H 10/08/20 08:46 Pulse Ox 98 10/08/20 08:00 Weight - Most Recent: 288 lb 1 oz Lab Results - Last 24 hrs: Laboratory Results - last 24 hr 10/08/20 Range/Units 06:15 Sodium 141 (135-145) mmol/L Potassium 4.0 (3.5-5.3) mmol/L Chloride 103 D (100-110) mmol/L Carbon Dioxide 27 (21-32) mmol/L BUN 18 (7-18) mg/dL Creatinine 1.1 (0.70-1.30) mg/dL Est Cr Clr Drug Dosing 90.00 mL/min Estimated GFR (MDRD) > 60 (>60) BUN/Creatinine Ratio 16.4 (9-20) Glucose 131 H (80-116) mg/dL Calcium 7.8 L (8.6-10.2) mg/dL Magnesium 1.6 L (1.8-2.5) mg/dL Total Bilirubin 0.4 (0.1-1.3) mg/dL AST 28 H D (5-25) IU/L ALT 32 D (12-36) U/L Alkaline Phosphatase 79 (56-112) IU/L Total Protein 6.2 (6.0-8.0) g/dL Albumin 2.8 L (3.2-4.6) g/dL Globulin 3.4 g/dL Albumin/Globulin Ratio 0.8 KEVIN Results - Last 24 hrs: Microbiology 10/07/20 12:20 Occult Blood - Preliminary Stool / Feces Med Orders - Current: Current Medications Discontinued Medications Acetaminophen (Acetaminophen 325 Mg Tab) 650 mg PO Q4H PRN PRN Reason: Pain (Mild 1-3)/fever Last Admin: 10/02/20 20:08 Dose: 650 mg Documented by: Albuterol/Ipratropium (Albuterol/Ipratropium 3.0-0.5 Mg/3 Ml Neb Soln) 3 ml NEB Q6H [facility] Last Admin: 10/08/20 11:43 Dose: Not Given Documented by: Amlodipine Besylate (Amlodipine 5 Mg Tab) 5 mg PO DAILY [facility] Last Admin: 10/08/20 08:46 Dose: 5 mg Documented by: Calcium Carbonate/Glycine (Calcium Carbonate 500 Mg Tab.Chew) 500 mg PO Q2H PRN PRN Reason: Indigestion Last Admin: 10/05/20 14:14 Dose: 500 mg Documented by: Diazepam (Diazepam 5 Mg Tab) 10 mg PO ONETIME ONE Stop: 10/02/20 09:16 Last Admin: 10/02/20 10:11 Dose: 10 mg Documented by: Enoxaparin Sodium (Enoxaparin 40 Mg/0.4 Ml Syringe) 40 mg SUBCUT Q24H [facility] Last Admin: 10/02/20 16:49 Dose: Not Given Documented by: Ferrous Sulfate (Ferrous Sulfate 325 Mg Tab) 325 mg PO BID [facility] Last Admin: 10/08/20 08:46 Dose: 325 mg Documented by: Guaifenesin/Codeine Phosphate (Codeine/Guaifenesin 10-100 Mg/5 Ml Syrup 5 Ml Cup) 10 ml PO Q6H [facility] Last Admin: 10/05/20 11:05 Dose: 10 ml Documented by: Guaifenesin/Codeine Phosphate (Codeine/Guaifenesin 10-100 Mg/5 Ml Syrup 5 Ml Cup) 10 ml PO Q6H PRN PRN Reason: COUGH Last Admin: 10/05/20 22:48 Dose: 10 ml Documented by: Dextrose/Sodium Chloride (Dextrose 5%-Normal Saline) 1,000 mls @ [facility] Last Admin: 10/02/20 08:38 Dose: 999 mls/hr Documented by: Thiamine HCl 100 mg/ Sodium (Chloride) 101 mls @ 202 mls/hr IV NOW STA Stop: 10/02/20 08:23 Last Admin: 10/02/20 08:44 Dose: 202 mls/hr Documented by: Sodium Chloride (Normal Saline) 1,000 mls [facility] 125 [facility] Last Admin: 10/03/20 01:17 Dose: 125 mls/hr Documented by: Sodium Chloride (Normal Saline) 1,000 mls @ 125 mls/hr IV ASDIRECTED [facility] Last Admin: 10/03/20 17:53 Dose: 125 mls/hr Documented by: Thiamine HCl 100 mg/ Sodium (Chloride) 101 mls @ 202 mls/hr IV DAILY [facility] Last Admin: 10/05/20 08:58 Dose: 202 mls/hr Documented by: Levothyroxine Sodium (Levothyroxine 200 Mcg Tab) 200 mcg PO ACBREAKFAST ROGER Last Admin: 10/08/20 06:34 Dose: 200 mcg Documented by: Levothyroxine Sodium (Levothyroxine 75 Mcg Tab) 75 mcg PO ACBREAKFAST ROGER Last Admin: 10/08/20 06:34 Dose: 75 mcg Documented by: Levothyroxine Sodium (Levothyroxine 75 Mcg Tab) 75 mcg PO ONETIME ONE Stop: 10/02/20 18:19 Last Admin: 10/02/20 18:47 Dose: 75 mcg Documented by: Levothyroxine Sodium (Levothyroxine 200 Mcg Tab) 200 mcg PO ONETIME ONE Stop: 10/02/20 18:20 Last Admin: 10/02/20 18:46 Dose: 200 mcg Documented by: Lorazepam (Lorazepam 2 Mg/Ml Sdv) 0 mg IVPUSH Q4H PRN; Protocol PRN Reason: ALCOHOL WITHDRAWL Lorazepam (Lorazepam 1 Mg Tab) 0 mg PO ASDIRECTED [facility]; Protocol Last Admin: 10/03/20 21:09 Dose: 1 mg Documented by: Lorazepam (Lorazepam 2 Mg/Ml Sdv) 0 mg IVPUSH ASDIRECTED PRN; Protocol PRN Reason: ALCOHOL WITHDRAWL Magnesium Oxide (Magnesium Oxide 400 Mg Tab) 400 mg PO BID [facility] Last Admin: 10/06/20 08:23 Dose: 400 mg Documented by: Magnesium Oxide (Magnesium Oxide 400 Mg Tab) 400 mg PO TID [facility] Last Admin: 10/08/20 08:49 Dose: 400 mg Documented by: Metoprolol Tartrate (Metoprolol Tartrate 100 Mg Tab) 100 mg PO BID [facility] Last Admin: 10/08/20 08:46 Dose: 100 mg Documented by: Multivitamins/Minerals/Vitamin C (Multivitamin Tab) 1 tab PO NOW STA Stop: 10/02/20 08:23 Last Admin: 10/02/20 08:46 Dose: 1 tab Documented by: Multivitamins/Minerals/Vitamin C (Multivitamin, Childrens Tab.Chew) 1 tab PO DAILY [facility] Last Admin: 10/08/20 08:46 Dose: 1 tab Documented by: Ondansetron HCl (Ondansetron 4 Mg/2 Ml Sdv) 4 mg IV Q4H PRN PRN Reason: Nausea/Vomiting Potassium Phos/Sodium Phos (Potassium Phosphate,Mb-Db/Sodium Phosphate,Mb-Db Packet) 1 each PO TID [facility] Last Admin: 10/08/20 08:47 Dose: 1 package Documented by: Senna/Docusate Sodium (Docusate Sodium/Sennosides 50-8.6 Mg Tab) 1 tab PO BID PRN PRN Reason: Constipation Sertraline HCl (Sertraline 50 Mg Tab) 150 mg PO DAILY [facility] Last Admin: 10/08/20 08:47 Dose: 150 mg Documented by: Sodium Chloride (Sodium Chloride 0.9% 10 Ml Syringe) 10 ml FLUSH ASDIRECTED PRN PRN Reason: Keep Vein Open Last Admin: 10/05/20 20:04 Dose: 10 ml Documented by: Thiamine HCl (Thiamine 100 Mg Tab) 100 mg PO DAILY [facility] Last Admin: 10/08/20 08:45 Dose: 100 mg Documented by: - Exam General: Reports: Alert, Oriented, Cooperative, No Acute Distress Lungs: Reports: Clear to Auscultation, Normal Respiratory Effort Cardiovascular: Reports: Regular Rate, Regular Rhythm GI/Abdominal Exam: Normal Bowel Sounds, Soft, Non-Tender, No Distention Extremities: Pedal Edema (trace BLE) Neurological: Denies: Sensation Intact (BLE, chronic)
== END 2020-10-08 14:45 | disposition home or self-care (01) | DRG 897 ==
LOC: FB.ED 07:33 → FB.MS 11:42 → OBSVTOIN 10-04 10:14
PROVIDERS: ADMIT Emergency Medicine; ATTEND Family Medicine
DX: F10.239 Alcohol dependence with withdrawal, unspecified (principal); N17.9 Acute kidney failure, unspecified; K86.1 Other chronic pancreatitis; E03.9 Hypothyroidism, unspecified; E87.6 Hypokalemia; F32.9 Major depressive disorder, single episode, unspecified; E11.9 Type 2 diabetes mellitus without complications; G62.1 Alcoholic polyneuropathy; E83.42 Hypomagnesemia; E66.09 Other obesity due to excess calories; E83.39 Other disorders of phosphorus metabolism; R74.8 Abnormal levels of other serum enzymes; D64.9 Anemia, unspecified; Y90.7 Blood alcohol level of 200-239 mg/100 ml; Z20.822 Contact with and (suspected) exposure to COVID-19; R44.1 Visual hallucinations; Z79.890 Hormone replacement therapy; Z72.0 Tobacco use; Z79.899 Other long term (current) drug therapy; Z68.34 Body mass index [BMI] 34.0-34.9, adult
CPT/HCPCS: 36415; 70450; 71045; 80053; 80307; 82140; 82150; 82270; 82607; 82746; 82962; 83036; 83690; 83735; 84100; 84443; 84484; 85025; 93005; 93010; 94640; 96374; 97110-GP; 97162-GP; 97165-GO; 97530-GO; 97530-GP; 97535-GO; 99284; 99285-25; A9270-GY; G0378; J3411; J7030; J7620-GY; U0002